=== PATIENT | female | born 1935 | race Caucasian/White ===

== ENCOUNTER → 2023-09-12 | Emergency (ER) | payer OTHER ==
[~2023-09-12] MED LIST: FENTANYL CITR 100 MCG/2 ML ONE; NA CHLORIDE 0.9% 1,000 ML ONE; NA CHLORIDE 0.9% 500 ML ONE; ONDANSETRON 4 MG/2 ML VIAL ONE
--- NOTE | 2023-09-12 09:40 | RAD REPORT ---
EXAM DESCRIPTION: CT - Head C Spine Cap Wo Con - 09/12/2023 9:27 am CLINICAL HISTORY: Trauma, head and neck injury. Chest, abdomen and pelvis pain. Pain;Trauma COMPARISON: No comparisons TECHNIQUE: CT head without contrast. CT cervical spine without contrast with coronal and sagittal reformatted images. CT chest, abdomen and pelvis with coronal and sagittal reformatted images of the spine. All CT scans are performed using dose optimization technique as appropriate and may include automated exposure control or mA/KV adjustment according to patient size. FINDINGS: CT HEAD WITHOUT CONTRAST: No intracranial hemorrhage, hydrocephalus or extra-axial fluid collection. No acute large vascular te rritory infarct. Cerebral atrophy and chronic small vessel ischemic changes. The paranasal sinuses and mastoids are clear. The calvarium is intact. CT CERVICAL SPINE WITHOUT CONTRAST: No fracture or subluxation. The prevertebral soft tissues are normal in thickness.Carotid artery calcifications. Reversal of the normal cervical lordosis likely related to underlying degenerative changes. Varying degrees of neural foraminal narrowing noted. Mild anterolisthesis of C4 on C5 also likely related to facet degenerativ e changes. CT CHEST, ABDOMEN, PELVIS: Thorax: Chest Wall: No abnormal mass Lungs: No acute abnormality. Pleura: No effusions or pneumothorax. Suyapa/Mediastinum: No lymphadenopathy. Aorta/Pulmonary Arteries: Unremarkable Heart: Normal size. Multi-vessel coronary artery disease. Abdomen/Pelvis: Liver: Benign-appearing low-density liver lesions. Biliary: No biliary ductal dilatation. Stomach: No significant focal abnormality. Duodenum: No significant focal abnormality. Pancreas: No significant abnormality. Spleen: No significant abnormality. Adrenal: No suspicious lesions. Kidney/ureter: No hydronephrosis. No renal calculi. Retroperitoneum: No retroperitoneal adenopathy. Vascular: No aneurysm. Bowel: No significant focal abnormality. Peritoneum: No ascites or free air. Bladder: Grossly unremarkable. Reproductive: No adnexal masses. Bones: Intact left hip arthroplasty. Remote left obturator ring fracture. Multilevel degenerative nevaeh nges are present in the spine. Comminuted multipart fracture involving the right proximal humerus inv olving the surgical neck and greater and lesser tuberosity. The distal fragment is displaced superior ly and medially. Other: n/a IMPRESSION: Comminuted multipart fracture involving the right proximal humerus. No dislocation. No o ther evidence of significant acute trauma.
--- NOTE | 2023-09-12 10:06 | RAD REPORT ---
EXAM DESCRIPTION: RAD - Femur Right - 09/12/2023 10:01 am CLINICAL HISTORY: PAIN COMPARISON: No comparisons FINDINGS/IMPRESSION: No acute fracture. No malalignment. Peripheral vascular calcifications. Mild de generate changes at the knee.
--- NOTE | 2023-09-12 10:07 | RAD REPORT ---
EXAM DESCRIPTION: RAD - Chest Single View - 09/12/2023 10:01 am CLINICAL HISTORY: Pain;Trauma COMPARISON: No comparisons FINDINGS: Lines: None. Lungs: No evidence of edema or pneumonia. Pleural: No significant pleural effusions or pneumothorax. Cardiac: Mild cardiomegaly. Mediastinum: Within normal limits. Bones: No acute fractures. Other: None IMPRESSION: No acute cardiopulmonary disease.
--- NOTE | 2023-09-12 10:07 | RAD REPORT ---
EXAM DESCRIPTION: RAD - Hip Right 2 View - 09/12/2023 10:01 am CLINICAL HISTORY: PAIN COMPARISON: No comparisons FINDINGS/IMPRESSION: No right hip fracture or dislocation. Mild right acetabular degenerative change s. Peripheral vascular calcifications.
--- NOTE | 2023-09-12 10:07 | RAD REPORT ---
EXAM DESCRIPTION: RAD - Pelvis - 09/12/2023 10:01 am CLINICAL HISTORY: PAIN COMPARISON: <Comparisons> FINDINGS/IMPRESSION: Intact visualized portions of the left hip arthroplasty. Remote left obturator ring fracture. No acute pelvic fracture.
--- NOTE | 2023-09-12 10:08 | RAD REPORT ---
EXAM DESCRIPTION: RAD - Humerus Right - 09/12/2023 10:01 am CLINICAL HISTORY: Pain;Swelling COMPARISON: No comparisons FINDINGS/IMPRESSION: Multipart fracture involving the right proximal humerus. The fracture is displa israel superiorly and medially at the surgical neck. Fracture extends into the greater tuberosity. No di slocation.
[2023-09-12 10:10] LABS: Absolute Eosinophils 0.1 K/uL (0-0.5); Absolute Lymphocytes (CBC) 0.4 K/uL (0.7-4.9); Absolute Monocytes 0.5 K/uL (0.1-1.3); Absolute Neutrophil 6.5 K/uL (1.8-8.0); Basophils % 0.4 % (0-1.3); Hematocrit 34.2 % (36.0-45.0); Hemoglobin 11.5 g/dL (12.0-15.0); Lymphocytes % 5.6 % (15.3-44.8); MCH 32.1 pg (27.0-35.0); MCHC 33.6 g/dL (32.0-36.0); MCV 95.5 fL (80-100); MPV 7.7 fL (7.6-11.3); Monocytes % 6.4 % (3.3-12.3); Neutrophils % 86.6 % (41.7-73.7); Nucleated Red Blood Cells % 0.1 % (0-0); Platelets 709 thou/uL (152-406); RBC Red Blood Cell Count 3.58 M/uL (3.86-4.86); Red Cell Distribution Width 17.3 % (12.1-15.2)
[2023-09-12 10:19] LABS: PT Prothrombin Time 12.9 SECONDS (9.5-12.5); Protime INR 1.18
[2023-09-12 10:30] LABS: Albumin 3.8 g/dL (3.4-5.0); Albumin/Globulin Ratio 1.2 (1.1-1.8); Anion Gap 9.3 mEq/L (5.0-15.0); Bilirubin Direct 0.2 mg/dL (0-0.2); Bilirubin Indirect, Calculated 0.5 mg/dL (0.2-0.8); Bilirubin Total 0.7 mg/dL (0.2-1.0); Globulin 3.2 g/dL (2.3-3.5); Magnesium 2.2 mg/dL (1.6-2.4); Potassium 4.3 mEq/L (3.5-5.1); Troponin High Sensitivity 13.9 pg/mL (<58.9)
--- NOTE | 2023-09-12 11:08 | ER ---
Nurse's Notes [facility] Name: Concha Benjamin Age: 88 yrs Sex: Female : 1935 Arrival Date: 09/12/2023 Time: 09:12 Bed 7 Private MD: Diagnosis: Fall on same level, unspecified;4-part fracture of surgical neck of left humerus, initial encounter for closed fracture;Contusion of right hip Presentation: 09/11 09:19 Chief complaint: EMS states: "Slipped in the shower and landed on her right hip, no rs5 LOC". Coronavirus screen: At this time, the client does not indicate any symptoms associated with coronavirus-19. Ebola Screen: No symptoms or risks identified at this time. Initial Sepsis Screen: Does the patient meet any 2 criteria? No. Patient's initial sepsis screen is negative. Does the patient have a suspected source of infection? No. Patient's initial sepsis screen is negative. Risk Assessment: Do you want to hurt yourself or someone else? Patient reports no desire to harm self or others. Onset of symptoms was September 12, 2023. Care prior to arrival: Medication(s) given: 30 mg Toradol IV IV initiated. 20 GA, in the left forearm. 09:19 Method Of Arrival: EMS: [facility] rs5 09:19 Acuity: ANNALISE 3 rs5 Triage Assessment: 09:21 General: Appears uncomfortable, Behavior is cooperative. Pain: Complains of pain in rs5 right hip Pain currently is 7 out of 10 on a pain scale. Quality of pain is described as aching, Is continuous. Historical: - Allergies: :21 No Known Allergies; rs5 - PMHx: :21 Hypercholesterolemia; Hypertensive disorder; Hypothyroidism; Diabetes mellitus; rs5 09:21 Anxiety; rs5 - Immunization history:: Adult Immunizations unknown. - Social history:: Smoking status: Patient denies any tobacco usage or history of. - Family history:: not pertinent. Screenin:15 [facility] ED Fall Risk Assessment (Adult) History of falling in the last 3 months, rs5 including since admission Yes- single mechanical fall (1 pt) Confusion or Disorientation No (0 pts) Intoxicated or Sedated No (0 pts) Impaired Gait Yes (1 pt) Mobility Assist Device Used Yes (1 pt) Altered Elimination No (0 pt) Score/Fall Risk Level 0 - 2 = Low Risk Oriented to surroundings, Maintained a safe environment. Abuse screen: Denies threats or abuse. Nutritional screening: No deficits noted. Tuberculosis screening: No symptoms or risk factors identified. Assessment: 09:15 General: Appears in no apparent distress. uncomfortable, Behavior is cooperative. Pain: rs5 Complains of pain in right hip Pain currently is 7 out of 10 on a pain scale. Quality of pain is described as aching, Is continuous. 09:15 Neuro: Level of Consciousness is awake, alert, obeys commands, Oriented to person, rs5 place, time, situation. Cardiovascular: Patient's skin is warm and dry. Rhythm is regular. Respiratory: Airway is patent Respiratory effort is even, unlabored, Respiratory pattern is regular, symmetrical. GI: Abdomen is round non-distended, Abd is soft and non tender X 4 quads. : No signs and/or symptoms were reported regarding the genitourinary system. EENT: No signs and/or symptoms were reported regarding the EENT system. Derm: Skin is intact, Skin is pink, warm \\T\\ dry. Musculoskeletal: Range of motion: limited in right leg. 11:04 Reassessment: Pt had bowel movement in bedpan. Cleaned patient up and placed on ld1 purewick. Clean linens provided. 11:15 Reassessment: pt up for discharge, carriage in contacted to arrange for transportation. rs5 11:53 Reassessment: Patient and/or family updated on plan of care and expected duration. Pain rs5 level reassessed. Patient is alert, oriented x 3, equal unlabored respirations, skin warm/dry/pink. Vital Signs: 09:19 BP 177 / 65; Pulse 77; Resp 18; Pulse Ox 99% on R/A; rs5 10:43 BP 181 / 68; Pulse 75; Resp 18; Pulse Ox 95% on R/A; ld1 ED Course: 09:12 Patient arrived in ED. nevaeh 09:12 Ronny Dixon MD is Attending Physician. neaveh 09:15 Patient has correct armband on for positive identification. Placed in gown. Bed in low rs5 position. Call light in reach. Side rails up X2. 09:19 Carlos Najera RN is Primary Nurse. rs5 09:21 Triage completed. rs5 09:29 CT Traumagram (Head C Spine CAP wo con) In Process Unspecified. EDMS 10:02 XRAY Chest (1 view) In Process Unspecified. EDMS 10:02 Pelvis XRAY In Process Unspecified. EDMS 10:03 Hip Right 2 View XRAY In Process Unspecified. EDMS 10:03 Femur Right XRAY In Process Unspecified. EDMS 10:03 Humerus Right XRAY In Process Unspecified. EDMS 11:08 Ray Tam MD is Referral Physician. [facility] 12:28 No provider procedures requiring assistance completed. IV discontinued, intact, ld1 bleeding controlled, No redness/swelling at site. 12:29 Arm band placed on right wrist. ld1 Administered Medications: 09:40 Drug: fentaNYL (PF) IVP 25 mcg IVP once Route: IVP; Site: left forearm; rs5 10:43 Drug: NS 0.9% IV 500 ml IV at bolus once Route: IV; Rate: bolus; Site: left forearm; ld1 10:43 Drug: NS 0.9% IV 1000 ml IV at 125 ml/hr continuous Route: IV; Rate: 125 ml/hr; Site: ld1 left forearm; 11:04 Drug: fentaNYL (PF) IVP 25 mcg IVP once Route: IVP; Site: left forearm; ld1 11:04 Drug: Ondansetron IVP 4 mg IVP once; over 2 minutes Route: IVP; Site: left forearm; ld1 Medication: 09:23 VIS not applicable for this client. rs5 Outcome: 11:08 Discharge ordered by . [facility] 12:29 Discharged to home via wheelchair, ld1 12:29 Condition: unchanged 12:29 Discharge instructions given to patient, long-term, Instructed on discharge instructions, follow up and referral plans. medication usage, Demonstrated understanding of instructions, follow-up care, medications, 12:30 Patient left the ED. ld1 Signatures: Dispatcher [employer] Ronny Peterson MD MD cha Sims, Lauren, DEVIN RN ld1 Carlos Najera, DEVIN RN rs5 Corrections: (The following items were deleted from the chart) 11:53 11:53 Reassessment: pt up for discharge, carriage in contacted to arrange for rs5 transportation. rs5
--- NOTE | 2023-09-12 11:08 | EDPHYS ---
Physician Documentation [facility] Name: Concha Benjamin Age: 88 yrs Sex: Female : 1935 Arrival Date: 09/12/2023 Time: 09:12 Bed 7 Private MD: ED Physician Ronny Dixon HPI: 09/11 09:46 This 88 yrs old Female presents to ER via EMS with complaints of fall getting nevaeh out of the shower. 09:46 Trauma demographics: County: The injury occurred in [place]. Mechanism of injury: nevaeh Fall: the patient fell from a standing position. Associated injuries: The patient sustained right arm and right leg. Onset: The symptoms/episode began/occurred just prior to arrival, this morning. The patient or guardian complains of decreased range of motion, an injury, pain. right shoulder. Context: resulted from a fall, The patient experiences decreased range of motion. Modifying factors: the symptoms are alleviated by remaining still, The symptoms are aggravated by movement. The patient presents with decreased range of motion, pain. Associated signs and symptoms: The patient has no apparent associated signs or symptoms. Severity of symptoms: At their worst the symptoms were moderate, in the emergency department the symptoms are unchanged. Historical: - Allergies: 09:21 No Known Allergies; rs5 - PMHx: 09:21 Hypercholesterolemia; Hypertensive disorder; Hypothyroidism; Diabetes mellitus; rs5 09:21 Anxiety; rs5 - Immunization history:: Adult Immunizations unknown. - Social history:: Smoking status: Patient denies any tobacco usage or history of. - Family history:: not pertinent. ROS: 09:46 Constitutional: Negative for fever, chills, and weight loss, Eyes: Negative for injury, nevaeh pain, redness, and discharge, ENT: Negative for injury, pain, and discharge, Neck: Negative for injury, pain, and swelling, Cardiovascular: Negative for chest pain, palpitations, and edema, Respiratory: Negative for shortness of breath, cough, wheezing, and pleuritic chest pain, Abdomen/GI: Negative for abdominal pain, nausea, vomiting, diarrhea, and constipation, Back: Negative for injury and pain, : Negative for injury, bleeding, discharge, and swelling, Skin: Negative for injury, rash, and discoloration, Neuro: Negative for headache, weakness, numbness, tingling, and seizure, Psych: Negative for depression, anxiety, suicide ideation, homicidal ideation, and hallucinations, Allergy/Immunology: Negative for hives, rash, and allergies, Endocrine: Negative for neck swelling, polydipsia, polyuria, polyphagia, and marked weight changes, Hematologic/Lymphatic: Negative for swollen nodes, abnormal bleeding, and unusual bruising, 09:46 MS/extremity: Positive for decreased range of motion, pain, tenderness, of the pelvis, right arm and right leg, Exam: 09:46 Constitutional: This is a well developed, well nourished patient who is awake, alert, nevaeh and in no acute distress. Head/Face: Normocephalic, atraumatic. Eyes: Pupils equal round and reactive to light, extra-ocular motions intact. Lids and lashes normal. Conjunctiva and sclera are non-icteric and not injected. Cornea within normal limits. Periorbital areas with no swelling, redness, or edema. ENT: Nares patent. No nasal discharge, no septal abnormalities noted. Tympanic membranes are normal and external auditory canals are clear. Oropharynx with no redness, swelling, or masses, exudates, or evidence of obstruction, uvula midline. Mucous membranes moist. Neck: Trachea midline, no thyromegaly or masses palpated, and no cervical lymphadenopathy. Supple, full range of motion without nuchal rigidity, or vertebral point tenderness. No Meningismus. Chest/axilla: Normal chest wall appearance and motion. Nontender with no deformity. No lesions are appreciated. Cardiovascular: Regular rate and rhythm with a normal S1 and S2. No gallops, murmurs, or rubs. Normal PMI, no JVD. No pulse deficits. Respiratory: Lungs have equal breath sounds bilaterally, clear to auscultation and percussion. No rales, rhonchi or wheezes noted. No increased work of breathing, no retractions or nasal flaring. Abdomen/GI: Soft, non-tender, with normal bowel sounds. No distension or tympany. No guarding or rebound. No evidence of tenderness throughout. Back: No spinal tenderness. No costovertebral tenderness. Full range of motion. Skin: Warm, dry with normal turgor. Normal color with no rashes, no lesions, and no evidence of cellulitis. Neuro: Awake and alert, GCS 15, oriented to person, place, time, and situation. Cranial nerves II-XII grossly intact. Motor strength 5/5 in all extremities. Sensory grossly intact. Cerebellar exam normal. Normal gait. Psych: Awake, alert, with orientation to person, place and time. Behavior, mood, and affect are within normal limits. 09:46 Musculoskeletal/extremity: Extremities: grossly normal except: noted in the right arm: decreased ROM, pain, noted in the right leg: decreased ROM, pain, 11:11 ECG was reviewed by the Attending Physician. [facility] Vital Signs: 09:19 BP 177 / 65; Pulse 77; Resp 18; Pulse Ox 99% on R/A; rs5 10:43 BP 181 / 68; Pulse 75; Resp 18; Pulse Ox 95% on R/A; ld1 MDM: 09:13 Patient medically screened. [facility] 09:54 Differential diagnosis: closed head injury, DJD, tendonitis, dislocation, closed nevaeh fracture. Data reviewed: vital signs, nurses notes, lab test result(s), EKG, radiologic studies, CT scan, plain films. Consideration of Admission/Observation Escalation of care including admission/observation considered. I considered the following discharge prescriptions or medication management in the emergency department Medications were administered in the Emergency Department. See MAR. Independent interpretation of the following test(s) in the Emergency Department EKG: See my EKG interpretation above. Test considered but Not performed: Ultrasound no fast. 09/11 09:17 Order name: Basic Metabolic Panel; Complete Time: 10:59 [facility] 09/11 09:17 Order name: CBC with Diff [facility] 09/11 09:17 Order name: LFT's; Complete Time: 10:59 [facility] 09/11 09:17 Order name: Magnesium; Complete Time: 10:59 [facility] 09/11 09:17 Order name: NT PRO-BNP; Complete Time: 10:59 [facility] 09/11 09:17 Order name: PT-INR; Complete Time: 10:59 [facility] 09/11 09:17 Order name: Troponin HS; Complete Time: 10:59 [facility] 09/11 10:21 Order name: CBC Smear Scan EDMS 09/11 09:17 Order name: XRAY Chest (1 view); Complete Time: 10:17 [facility] 09/11 09:17 Order name: Pelvis XRAY; Complete Time: 10:17 [facility] 09/11 09:17 Order name: Hip Right 2 View XRAY; Complete Time: 10:17 [facility] 09/11 09:17 Order name: Femur Right XRAY; Complete Time: 10: [facility] 09/11 09:17 Order name: Humerus Right XRAY; Complete Time: : [facility] 09/11 09:17 Order name: CT Traumagram (Head C Spine CAP wo con); Complete Time: 10:17 [facility] 09/11 09:17 Order name: EKG; Complete Time: 09:18 [facility] 09/11 09:17 Order name: Cardiac monitoring; Complete Time: 10: [facility] 09/11 09:17 Order name: EKG - Nurse/Tech; Complete Time: : [facility] 09/11 09:17 Order name: IV Saline Lock; Complete Time: : [facility] 09/11 09:17 Order name: Labs collected and sent; Complete Time: : [facility] 09/11 09:17 Order name: O2 Per Protocol; Complete Time: :18 [facility] 09/11 09:17 Order name: O2 Sat Monitoring; Complete Time: :18 [facility] 09/11 11:00 Order name: Shoulder Immobilizer; Complete Time: 11:04 [facility] 09/11 11:00 Order name: Ice pack; Complete Time: 11:04 [facility] EC:11 Rate is 63 beats/min. Rhythm is regular. QRS [place] is Normal. [place] interval is normal. QRS nevaeh interval is normal. QT interval is normal. No Q waves. T waves are Normal. No ST changes noted. Clinical impression: NSR w/ Non-specific ST/T Changes and No evidence of ischemia. Interpreted by me. Reviewed by me. Administered Medications: 09:40 Drug: fentaNYL (PF) IVP 25 mcg IVP once Route: IVP; Site: left forearm; rs5 10:43 Drug: NS 0.9% IV 500 ml IV at bolus once Route: IV; Rate: bolus; Site: left forearm; ld1 10:43 Drug: NS 0.9% IV 1000 ml IV at 125 ml/hr continuous Route: IV; Rate: 125 ml/hr; Site: ld1 left forearm; 11:04 Drug: fentaNYL (PF) IVP 25 mcg IVP once Route: IVP; Site: left forearm; ld1 11:04 Drug: Ondansetron IVP 4 mg IVP once; over 2 minutes Route: IVP; Site: left forearm; ld1 Disposition Summary: 09/12/23 11:08 Discharge Ordered Notes: Location: Home [facility] Problem: new nevaeh Symptoms: have improved nevaeh Condition: Stable nevaeh Diagnosis - Fall on same level, unspecified nevaeh - 4-part fracture of surgical neck of left humerus, initial encounter for closed [facility] fracture - Contusion of right hip nevaeh Followup: nevaeh - With: Private Physician - When: 2 - 3 days - Reason: Recheck today's complaints, Continuance of care, Re-evaluation by your physician Followup: nevaeh - With: Ray Tam MD - When: 2 - 3 days - Reason: Recheck today's complaints, Re-evaluation by your physician Discharge Instructions: - Discharge Summary Sheet nevaeh - Fall Prevention in the Home, Adult nevaeh - Humerus Fracture Treated With Immobilization nevaeh - Fall Prevention in the Home, Adult, [id number] nevaeh - Humerus Fracture Rehab [facility] Forms: - Medication Reconciliation Form [facility] - Thank You Letter [facility] - Antibiotic Education nevaeh - Prescription Opioid Use nevaeh - Patient Portal Instructions [facility] - Leadership Thank You Letter [facility] Prescriptions: - acetaminophen-codeine 300-30 mg Oral tablet - take 1 tablet ORAL route every 4-6 hours as needed for pain; 20 tablet; nevaeh Refills: 0, Product Selection Permitted - Motrin IB 200 mg Oral tablet - take 1 tablet ORAL route every 6 hours As needed as needed with food; 30 nevaeh tablet; Refills: 0, Product Selection Permitted Signatures: Dispatcher [employer] Ronny Peterson MD MD cha Sims, Lauren, RN RN ld1 Carlos Najera RN RN rs5
[2023-09-12 12:51] LABS: Platelet Estimate INCR; White Blood Cell Scan OK (OK)
[2023-09-12 12:52] LABS: Blood Morphology Comment NOT SEEN (NOT SEEN)
[2023-09-12 12:53] VITALS: BP 181/68; O2SAT 95
--- NOTE | 2023-09-16 14:33 | EKG ---
Test Date: 2023-09-12 Test Time: 09:35:46 Tag Maker: JOSEFA MEASUREMENT RESULTS: Intervals: Rate: 63 VT: 192 QRSD: 94 QT: 460 QTc: 470 [place]: P: 91 VT: 192 QRS: 84 T: 73 INTERPRETIVE STATEMENTS: Normal sinus rhythm Normal ECG No previous ECG available for comparison Electronically Signed On 09-16-23 14:18:22 CDT by Abdiaziz Roberts
== END ==
LOC: ER 09:12
DX: S42.241A 4-part fracture of surgical neck of right humerus, initial encounter for closed fracture (principal); S70.01XA Contusion of right hip, initial encounter; W18.30XA Fall on same level, unspecified, initial encounter
CPT/HCPCS: 93005; 85025; 80048; 36415; 83735; 85610; 80076; 84484; 83880; 70450; 71250; 72125; 71045; 72170; 73502; 73060; 73552; 96375; 96374; 99284; J3010; J2405; J7040; J7030

== ENCOUNTER 2023-09-15 10:57 | Inpatient (IN) | payer OTHER ==
[2023-09-15] MEDS ORDERED: KETOROLAC 30 MG/ML INJ ONE (11:26)
[2023-09-15] MEDS ORDERED: ONDANSETRON 4 MG/2 ML VIAL ONE (11:26)
[2023-09-15] MEDS ORDERED: FENTANYL CITR 100 MCG/2 ML ONE (11:26)
[2023-09-15] MEDS ORDERED: DIAZEPAM 5 MG TABLET ONE (11:27)
[2023-09-15] MEDS ORDERED: NA CHLORIDE 0.9% 1,000 ML ONE (11:27)
[2023-09-15] MEDS ORDERED: FAMOTIDINE 20 MG/2 ML VIAL IV ONE (11:27)
[2023-09-15 11:38] LABS: Absolute Lymphocytes (CBC) 0.2 K/uL (0.7-4.9); Absolute Monocytes 0.7 K/uL (0.1-1.3); Absolute Neutrophil 9.8 K/uL (1.8-8.0); Basophils % 0.4 % (0-1.3); Eosinophils % 0.3 % (0-4.4); Hematocrit 33.2 % (36.0-45.0); Hemoglobin 11.1 g/dL (12.0-15.0); Lymphocytes % 1.7 % (15.3-44.8); MCH 31.7 pg (27.0-35.0); MCHC 33.4 g/dL (32.0-36.0); MCV 94.9 fL (80-100); MPV 7.8 fL (7.6-11.3); Monocytes % 6.5 % (3.3-12.3); Neutrophils % 91.1 % (41.7-73.7); Platelets 705 thou/uL (152-406); Red Cell Distribution Width 17.3 % (12.1-15.2)
[2023-09-15 11:49] LABS: PT Prothrombin Time 13.3 SECONDS (9.5-12.5); Protime INR 1.22
[2023-09-15 12:03] LABS: Albumin 3.3 g/dL (3.4-5.0); Albumin/Globulin Ratio 0.9 (1.1-1.8); Anion Gap 11.4 mEq/L (5.0-15.0); Bilirubin Direct 0.3 mg/dL (0-0.2); Bilirubin Indirect, Calculated 0.6 mg/dL (0.2-0.8); Bilirubin Total 0.9 mg/dL (0.2-1.0); Globulin 3.5 g/dL (2.3-3.5); Magnesium 1.9 mg/dL (1.6-2.4); Potassium 4.4 mEq/L (3.5-5.1); Protein, Total 6.8 g/dL (6.4-8.2)
[2023-09-15 12:24] LABS: Specific Gravity 1.011 (1.005-1.030); Sqamous Epithelial <5 /HPF (None Seen); Urine Bacteria <20 /HPF (<20); Urine Bilirubin NEGATIVE (Negative); Urine Blood Negative (Negative); Urine Clarity Turbid (Clear); Urine Color Colorless (Yellow); Urine Culture Reflex Order NOT NEEDED; Urine Glucose 4+ (Over) (Negative); Urine Ketones 1+ (Negative); Urine Microscopic Reflex YN ORDER UMIC; Urine Nitrite NEGATIVE (Negative); Urine Protein NEGATIVE (Negative); Urine RBC <5 /HPF (None Seen); Urine Urobilinogen Normal (Normal); Urine WBC <5 /HPF (<5); Urine pH 6.5 (5.0-7.0)
--- NOTE | 2023-09-15 12:44 | RAD REPORT ---
EXAM DESCRIPTION: RAD - Pelvis - 09/15/2023 12:34 pm CLINICAL HISTORY: PAIN COMPARISON: Pelvis dated 09/12/2023 FINDINGS: Left total hip arthroplasty seen. Diffuse osteopenia. No acute fracture or dislocation see n. Lumbar degenerative changes. Mild atherosclerosis.
--- NOTE | 2023-09-15 12:45 | RAD REPORT ---
EXAM DESCRIPTION: RAD - Femur Right - 09/15/2023 12:34 pm CLINICAL HISTORY: PAIN COMPARISON: Femur Right dated 09/12/2023 FINDINGS: Diffuse osteopenia is seen. Moderate vascular atherosclerosis. No acute fracture or disloc ation.
--- NOTE | 2023-09-15 12:45 | RAD REPORT ---
EXAM DESCRIPTION: RAD - Tib Fib Right - 09/15/2023 12:34 pm CLINICAL HISTORY: PAIN COMPARISON: No comparisons FINDINGS: Prominent diffuse osteopenia. Moderate vascular calcification. No acute fracture or disloc ation.
--- NOTE | 2023-09-15 12:46 | RAD REPORT ---
EXAM DESCRIPTION: RAD - Chest Single View - 09/15/2023 12:34 pm CLINICAL HISTORY: COUGH Chest pain. COMPARISON: Chest Single View dated 09/12/2023; Humerus Right dated 09/12/2023 FINDINGS: Portable technique limits examination quality. [id number] pulmonary edema pattern is seen. The heart is moderately enlarged. Proximal right hu merus fracture seen. IMPRESSION: Moderate CHF pattern.
[2023-09-15 12:52] LABS: Blood Morphology Comment NOT SEEN (NOT SEEN); Dohle Bodies PRESENT; Platelet Estimate INCR; White Blood Cell Scan OK (OK)
--- NOTE | 2023-09-15 12:56 | RAD REPORT ---
EXAM DESCRIPTION: CT - Chest For Pe Angio - 09/15/2023 12:45 pm CLINICAL HISTORY: Chest pain. CHEST PAIN COMPARISON: No comparisons TECHNIQUE: CT angiogram of the pulmonary arteries was performed with MIP. All CT scans are performed using dose optimization technique as appropriate and may include automated exposure control or mA/KV adjustment according to patient size. FINDINGS: No evidence of pulmonary thromboembolism. No acute aortic finding demonstrated. Mild interstitial pulmonary edema. Cardiac size is mildly enlarged. No significant pericardial or pleural fluid. Proximal right humerus fracture, mildly comminuted. IMPRESSION: No evidence of pulmonary thromboembolism. Mild CHF pattern. Proximal right humeral fracture.
--- NOTE | 2023-09-15 12:58 | RAD REPORT ---
EXAM DESCRIPTION: CTAbdomen Pelvis W Contrast - 09/15/2023 12:45 pm CLINICAL HISTORY: Abdominal pain. ABD PAIN COMPARISON: No comparisons TECHNIQUE: Biphasic CT imaging of the abdomen and pelvis was performed with 100 ml non-ionic IV cont rast. All CT scans are performed using dose optimization technique as appropriate and may include automated exposure control or mA/KV adjustment according to patient size. FINDINGS: The lung bases are clear. The liver demonstrates numerous small low-density lesions likely small benign cysts. Spleen, pancreas , adrenal glands and kidneys are within normal limits. No bowel obstruction, free air, free fluid or abscess. There is a large amount of stool within the co tino. The appendix is normal. No evidence of significant lymphadenopathy. Moderate lumbar degenerative changes. IMPRESSION: No acute intra-abdominal or pelvic finding. Large amount of stool retained in the colon.
[2023-09-15] MEDS ORDERED: INSULIN GLARGINE 100 UNIT/ML SQ ONE (13:01)
[2023-09-15] MEDS ORDERED: INSULIN REGULAR (HUMAN) 100 UNIT/ML ONE (13:03)
[2023-09-15] MEDS ORDERED: ENOXAPARIN 60 MG/0.6 ML SQ ONE (13:04)
[2023-09-15] MEDS ORDERED: FUROSEMIDE 20 MG/ 2ML VIAL ONE (13:14)
--- NOTE | 2023-09-15 13:19 | ER ---
Nurse's Notes [facility] Name: Concha Benjamin Age: 88 yrs Sex: Female : 1935 Arrival Date: 09/15/2023 Time: 10:57 Bed 15 Private MD: Diagnosis: Fall on same level, unspecified;Pain in right lower leg;Type 2 diabetes mellitus with hyperglycemia;Essential (primary) hypertension;Combined systolic (congestive) and diastolic (congestive) heart failure;4-part fracture of surgical neck of right humerus, sequela Presentation: 09/14 11:04 Chief complaint: EMS states: RIGHT LEG AND SIDE PAIN. FALL SATURDAY SEEN AND GIVEN PAIN db MEDICATION. STATES PAIN MEDICATION IS CAUSING CONSTIPATION STOPPED MEDICATION. DIAGNOSED WITH HUMERAL FRACTURE. FROM [facility] [place]. LAST TOOK PAIN MEDICATION TYLENOL #3 AT 0300 TODAY. Coronavirus screen: Vaccine status: Patient reports receiving the 2nd dose of the covid vaccine. Client denies travel out of the [place] in the last 14 days. At this time, the client does not indicate any symptoms associated with coronavirus-19. Ebola Screen: Patient negative for fever greater than or equal to 101.5 degrees Fahrenheit, and additional compatible Ebola Virus Disease symptoms Patient denies exposure to infectious person. Patient denies travel to an Ebola-affected area in the 21 days before illness onset. No symptoms or risks identified at this time. Initial Sepsis Screen: Does the patient meet any 2 criteria? No. Patient's initial sepsis screen is negative. Does the patient have a suspected source of infection? No. Patient's initial sepsis screen is negative. Risk Assessment: Do you want to hurt yourself or someone else? Patient reports no desire to harm self or others. Onset of symptoms was September 15, 2023. 11:04 Method Of Arrival: EMS: [facility] db 11:04 Acuity: ANNALISE 3 db Triage Assessment: 11:04 General: Appears in no apparent distress. comfortable, Behavior is calm, cooperative. db Pain: Complains of pain in right arm and right leg. Neuro: Level of Consciousness is awake, alert, obeys commands, Oriented to person, place, time, situation, Moves all extremities. Speech is normal. Musculoskeletal: Circulation, motion, and sensation intact. Capillary refill < 3 seconds, Range of motion: limited in right hip. Historical: - Allergies: 11:12 Tape; db - PMHx: 11:12 Anxiety; diabetes mellitus; Hypercholesterolemia; Hypertensive disorder; Hypothyroidism;db - Immunization history:: Adult Immunizations unknown. - Social history:: Smoking status: Patient denies any tobacco usage or history of. - Family history:: not pertinent. Screenin:55 [facility] ED Fall Risk Assessment (Adult) History of falling in the last 3 months, db including since admission Yes- single mechanical fall (1 pt) Confusion or Disorientation No (0 pts) Intoxicated or Sedated No (0 pts) Impaired Gait Yes (1 pt) Mobility Assist Device Used Yes (1 pt) Altered Elimination No (0 pt) Score/Fall Risk Level 3 or more points = High Risk Oriented to surroundings, Maintained a safe environment. Abuse screen: Denies threats or abuse. Denies injuries from another. Nutritional screening: No deficits noted. Tuberculosis screening: No symptoms or risk factors identified. Assessment: 11:35 Reassessment: Patient appears in no apparent distress at this time. Patient and/or db family updated on plan of care and expected duration. Pain level reassessed. Patient is alert, oriented x 3, equal unlabored respirations, skin warm/dry/pink. PT ASSISTED ON BEDSIDE COMMODE. General: Appears in no apparent distress. comfortable, Behavior is calm, cooperative. Pain: Complains of pain in right leg. 12:30 Reassessment: Patient appears in no apparent distress at this time. Patient and/or db family updated on plan of care and expected duration. Pain level reassessed. Patient is alert, oriented x 3, equal unlabored respirations, skin warm/dry/pink. Neuro: No deficits noted. Level of Consciousness is awake, alert, obeys commands, Oriented to person, place, time, situation. Respiratory: Airway is patent Respiratory effort is even, unlabored, Respiratory pattern is regular, symmetrical. Musculoskeletal: Circulation, motion, and sensation intact. Capillary refill < 3 seconds, Range of motion: limited in right hip Reports pain in right leg. 13:30 Reassessment: Patient appears in no apparent distress at this time. Patient and/or db family updated on plan of care and expected duration. Pain level reassessed. Patient is alert, oriented x 3, equal unlabored respirations, skin warm/dry/pink. PATIENT CHANGED. NEW BRIEF PLACED. PATIENT PLACED ON PURWICK. 13:35 Reassessment: NOTIFIED DR. VANEGAS PATIENT REPORTS TAKING HOME AM MEDICATIONS db METOPROLOL AND ASPIRIN. 14:02 Reassessment: FAXED REPORT TO 2ND FLOOR. NOTIFIED BARB. db 14:02 Reassessment: FLOOR CALLED AND REQUESTED REPORT FAXED TO 4TH FLOOR DUE TO OUT OF TONER. db ONLY ABLE TO SEE TOP PAGE. 14:14 Reassessment: REPORT FAXED TO 4TH FLOOR PER NURSE REQUEST. db 14:19 Reassessment: Patient appears in no apparent distress at this time. Patient and/or db family updated on plan of care and expected duration. Pain level reassessed. Patient is alert, oriented x 3, equal unlabored respirations, skin warm/dry/pink. 14:58 Reassessment: NOTIFIED LYDIA CHRIS, ATTEMPTED TO CALL UNIT TO LET THEM KNOW PATIENT db IS ON THE WAY UNABLE TO GET A HOLD OF STAFF. NOTIFIED ALSO SENT PAPERWORK BY [facility] BECAUSE UNIT STATES PRINTER IS OUT OF TONER. 14:59 Reassessment: PATIENT TRANSPORTED UPSTAIRS VIA BED WITH TECH AND FAMILY. db Vital Signs: 11:04 BP 187 / 77; Pulse 70; Resp 18; Temp 98.7(O); Pulse Ox 100% on R/A; Weight 54.43 kg; db Height 5 ft. 6 in. ; Pain 9/10; 12:00 BP 166 / 86; Pulse 70; Resp 20; Pulse Ox 100% on R/A; db 12:49 BP 172 / 60; Pulse 68; Resp 18; Pulse Ox 100% on R/A; db 13:30 BP 178 / 62; Pulse 64; Resp 18; Pulse Ox 100% on R/A; db 14:00 BP 181 / 67; Pulse 70; Resp 18; Pulse Ox 100% on R/A; db 11:04 Body Mass Index 19.37 (54.43 kg, 167.64 cm) db 11:04 Pain Scale: Adult db Thais Coma Score: 11:16 Eye Response: spontaneous(4). Motor Response: obeys commands(6). Verbal Response: nevaeh oriented(5). Total: 15. ED Course: 11:04 Arm band placed on Patient placed in an exam room. db 11:10 Patient arrived in ED. db 11:12 Triage completed. db 11:13 Ronny Vanegas MD is Attending Physician. nevaeh 11:19 Samantha Loera, RN is Primary Nurse. db 11:36 Lipase Sent. bc6 11:37 Basic Metabolic Panel Sent. bc6 11:37 CBC with Diff Sent. bc6 11:37 LFT's Sent. bc6 11:37 Magnesium Sent. bc6 11:37 NT PRO-BNP Sent. bc6 11:37 PT-INR Sent. bc6 11:37 Troponin HS Sent. bc6 11:37 Initial lab(s) drawn, by me, sent to lab. Inserted saline lock: 22 gauge in left bc6 antecubital area, using aseptic technique. Blood collected. 12:35 XRAY Chest (1 view) In Process Unspecified. EDMS 12:35 Pelvis XRAY In Process Unspecified. EDMS 12:35 Femur Right XRAY In Process Unspecified. EDMS 12:35 Tib Fib Right XRAY In Process Unspecified. EDMS 12:[address] via stretcher. hb 12:47 CT Chest For PE Angio In Process Unspecified. EDMS 12:47 CT Abd/Pelvis - IV Contrast Only In Process Unspecified. EDMS 13:16 Brit Mai MD is Hospitalizing Provider. nevaeh 13:28 US Extremity Venous W Compression Nathaniel In Process Unspecified. EDMS 13:55 Patient has correct armband on for positive identification. Bed in low position. Call db light in reach. Side rails up X 1. Provided Education on: LABS, ADMISSION, RADIOLOGY, PAIN CONTROL. Client placed on continuous cardiac and pulse oximetry monitoring. NIBP monitoring applied. clinical research monitor on. Pulse ox on. NIBP on. Warm blanket given. 13:55 No provider procedures requiring assistance completed. Patient admitted, IV remains in db place. Administered Medications: 13:06 Discontinued: ns 0.9% 1000 ml IV at 125 ml/hr continuous nevaeh 11:35 Drug: Diazepam PO 5 mg PO once Route: PO; db 15:02 Follow up: Response: No adverse reaction db 11:45 Drug: NS 0.9% IV 250 ml IV at bolus once Route: IV; Rate: bolus; Site: left antecubital;db 12:14 Follow up: Response: No adverse reaction; IV Status: Completed infusion; IV Intake: tl4 250ml 11:53 Drug: Ketorolac IVP 15 mg IVP once Route: IVP; Site: left antecubital; db 15:02 Follow up: Response: No adverse reaction db 11:53 Drug: fentaNYL (PF) IVP 25 mcg IVP once Route: IVP; Site: left antecubital; db 15:03 Follow up: Response: No adverse reaction db 11:54 Drug: Ondansetron IVP 4 mg IVP once; over 2 minutes Route: IVP; Site: left antecubital; db 15:03 Follow up: Response: No adverse reaction db 11:58 Drug: Famotidine IVP 20 mg IVP once; dilute with 10 mL 0.9% NaCl; give over 2 minutes db Route: IVP; Site: left antecubital; 15:02 Follow up: Response: No adverse reaction db 12:14 Drug: NS 0.9% IV 1000 ml IV at 125 ml/hr continuous Route: IV; Rate: 125 ml/hr; Site: tl4 left antecubital; Delivery: Primary tubing; 13:08 Drug: Insulin Regular Human IVP 8 units IVP once {Co-Signature: tl4 (Imtiaz Casanova RN).} Route: IVP; Site: left antecubital; 15:02 Follow up: Response: No adverse reaction db 13:14 Drug: Insulin Glargine Sub-Q 25 units Sub-Q once {Co-Signature: tl4 (Imtiaz Casanova RN).} Route: Sub-Q; Site: left upper arm; 15:02 Follow up: Response: No adverse reaction db 13:14 Drug: Enoxaparin Sub-Q 1 mg/kg Sub-Q once Route: Sub-Q; Site: left lower abdomen; db 15:02 Follow up: Response: No adverse reaction db 13:22 Drug: Furosemide IVP 20 mg IVP once; give over 2 minutes Route: IVP; Site: left db antecubital; 15:02 Follow up: Response: No adverse reaction db 13:35 Not Given (Patient Refused; took this amm): aspirinchewable tablet 81 mg PO once db 13:36 Not Given (Patient Refused; took medication this AM): toprol xl25 mg PO once db Medication: 14:19 VIS not applicable for this client. db Point of Care Testing: Blood Glucose: 13:00 Blood Glucose: 348 mg/dL; tl4 14:00 Blood Glucose: 341 mg/dL; db Ranges: Intake: 12:14 IV: 250ml; Total: 250ml. tl4 Outcome: 13:18 Decision to Hospitalize by Provider. nevaeh 14:19 Admitted to ER Hold. Please see [facility] for further documentation. db 14:19 Condition: stable 14:19 Instructed on the need for admit, 15:03 Admitted to Med/surg accompanied by tech, via stretcher, room 202, db 15:03 Patient left the ED. db Signatures: Dispatcher [employer] EDRonny Patricia MD MD cha Baxter, Heather, RN RN Samantha Loera RN RN db Meena Gregory 6 LogdaImtiaz ngo RN RN tl4 LogdaImtiaz ngo RN tl4 Corrections: (The following items were deleted from the chart) 11:14 11:12 Arm band placed on Patient placed in an exam room, db db 11:15 11:12 General: Appears in no apparent distress. comfortable, Behavior is calm, db cooperative, db 11:15 11:12 Pain: Complains of pain in right arm and right leg db db 11:15 11:12 Neuro: Level of Consciousness is awake, alert, obeys commands, Oriented to db person, place, time, situation, Moves all extremities. Speech is normal, db 11:15 11:12 Musculoskeletal: Circulation, motion, and sensation intact. Capillary refill < 3 db seconds, Range of motion: limited in right hip db 11:39 11:38 Urine collected: [place] [id number] 11:40 11:39 Safety checks: Door open/sign placed on door: [place] [id number]
--- NOTE | 2023-09-15 13:19 | EDPHYS ---
Physician Documentation [facility] Name: Concha Benjamin Age: 88 yrs Sex: Female : 1935 Arrival Date: 09/15/2023 Time: 10:57 Bed 15 Private MD: ED Physician Ronny Dixon HPI: 09/14 11:16 This 88 yrs old Female presents to ER via EMS with complaints of Leg Pain. nevaeh 11:16 The patient presents with decreased range of motion, pain, that is acute. The nevaeh complaints affect the lateral aspect of right thigh, lateral aspect of right knee, lateral aspect of right calf, right quadriceps, right knee and right mojica. Context: resulted from a direct blow, the patient falling, the patient can partially bear weight. Onset: The symptoms/episode began/occurred 2 day(s) ago. Modifying factors: The symptoms are alleviated by remaining still, the symptoms are aggravated by movement. Associated signs and symptoms: Pertinent positives: swelling. Treatment prior to arrival includes: sling, splinting the affected extremity. Severity of symptoms: At their worst the symptoms were moderate, in the emergency department the symptoms are unchanged. The patient has not experienced similar symptoms in the past. Historical: - Allergies: 11:12 Tape; db - PMHx: 11:12 Anxiety; diabetes mellitus; Hypercholesterolemia; Hypertensive disorder; Hypothyroidism;db - Immunization history:: Adult Immunizations unknown. - Social history:: Smoking status: Patient denies any tobacco usage or history of. - Family history:: not pertinent. ROS: 11:16 Constitutional: Negative for fever, chills, and weight loss, Eyes: Negative for injury, nevaeh pain, redness, and discharge, ENT: Negative for injury, pain, and discharge, Neck: Negative for injury, pain, and swelling, Cardiovascular: Negative for chest pain, palpitations, and edema, Respiratory: Negative for shortness of breath, cough, wheezing, and pleuritic chest pain, Abdomen/GI: Negative for abdominal pain, nausea, vomiting, diarrhea, and constipation, Back: Negative for injury and pain, : Negative for injury, bleeding, discharge, and swelling, Skin: Negative for injury, rash, and discoloration, Neuro: Negative for headache, weakness, numbness, tingling, and seizure, Psych: Negative for depression, anxiety, suicide ideation, homicidal ideation, and hallucinations, Allergy/Immunology: Negative for hives, rash, and allergies, Endocrine: Negative for neck swelling, polydipsia, polyuria, polyphagia, and marked weight changes, Hematologic/Lymphatic: Negative for swollen nodes, abnormal bleeding, and unusual bruising, 11:16 MS/extremity: Positive for decreased range of motion, pain, swelling, tenderness, of the right leg, Exam: 11:16 Constitutional: This is a well developed, well nourished patient who is awake, alert, nevaeh and in no acute distress. Head/Face: Normocephalic, atraumatic. Eyes: Pupils equal round and reactive to light, extra-ocular motions intact. Lids and lashes normal. Conjunctiva and sclera are non-icteric and not injected. Cornea within normal limits. Periorbital areas with no swelling, redness, or edema. ENT: Nares patent. No nasal discharge, no septal abnormalities noted. Tympanic membranes are normal and external auditory canals are clear. Oropharynx with no redness, swelling, or masses, exudates, or evidence of obstruction, uvula midline. Mucous membranes moist. Neck: Trachea midline, no thyromegaly or masses palpated, and no cervical lymphadenopathy. Supple, full range of motion without nuchal rigidity, or vertebral point tenderness. No Meningismus. Chest/axilla: Normal chest wall appearance and motion. Nontender with no deformity. No lesions are appreciated. Cardiovascular: Regular rate and rhythm with a normal S1 and S2. No gallops, murmurs, or rubs. Normal PMI, no JVD. No pulse deficits. Respiratory: Lungs have equal breath sounds bilaterally, clear to auscultation and percussion. No rales, rhonchi or wheezes noted. No increased work of breathing, no retractions or nasal flaring. Abdomen/GI: Soft, non-tender, with normal bowel sounds. No distension or tympany. No guarding or rebound. No evidence of tenderness throughout. Back: No spinal tenderness. No costovertebral tenderness. Full range of motion. Skin: Warm, dry with normal turgor. Normal color with no rashes, no lesions, and no evidence of cellulitis. Neuro: Awake and alert, GCS 15, oriented to person, place, time, and situation. Cranial nerves II-XII grossly intact. Motor strength 5/5 in all extremities. Sensory grossly intact. Cerebellar exam normal. Normal gait. Psych: Awake, alert, with orientation to person, place and time. Behavior, mood, and affect are within normal limits. 11:16 Musculoskeletal/extremity: ROM: limited active range of motion due to pain, limited passive range of motion due to pain, Circulation is intact in all extremities. Sensation intact. Compartment Syndrome exam of affected extremity: is normal. Weight bearing: is unable to bear weight, 13:19 ECG was reviewed by the Attending Physician. [facility] Vital Signs: 11:04 BP 187 / 77; Pulse 70; Resp 18; Temp 98.7(O); Pulse Ox 100% on R/A; Weight 54.43 kg; db Height 5 ft. 6 in. ; Pain 9/10; 12:00 BP 166 / 86; Pulse 70; Resp 20; Pulse Ox 100% on R/A; db 12:49 BP 172 / 60; Pulse 68; Resp 18; Pulse Ox 100% on R/A; db 13:30 BP 178 / 62; Pulse 64; Resp 18; Pulse Ox 100% on R/A; db 14:00 BP 181 / 67; Pulse 70; Resp 18; Pulse Ox 100% on R/A; db 11:04 Body Mass Index 19.37 (54.43 kg, 167.64 cm) db 11:04 Pain Scale: Adult db Thais Coma Score: 11:16 Eye Response: spontaneous(4). Motor Response: obeys commands(6). Verbal Response: nevaeh oriented(5). Total: 15. MDM: 11:13 Patient medically screened. nevaeh 11:26 Differential diagnosis: closed fracture, contusion, tendonitis. Data reviewed: [facility] signs, nurses notes, EMS record, radiologic studies, CT scan, plain films. Consideration of Admission/Observation Patient was admitted/placed on observation. Escalation of care including admission/observation considered. I considered the following discharge prescriptions or medication management in the emergency department Medications were administered in the Emergency Department. See MAR. Independent interpretation of the following test(s) in the Emergency Department EKG: See my EKG interpretation above X-Ray: My interpretation is RO FX. CT Scan: My interpretation is CT TRAUMA. windows system admin:. Test considered but Not performed: MRI: NO MRI. Historians other than the Patient: Family Member: FAMILY WELL INFORMED. Care significantly affected by the following chronic conditions: Diabetes, Hypertension, ANXIETY, HIGH CHOLESTEROL. 09/14 11:15 Order name: Basic Metabolic Panel; Complete Time: 12:25 [facility] 09/14 11:15 Order name: CBC with Diff; Complete Time: 13:05 [facility] 09/14 11:15 Order name: LFT's; Complete Time: 12:25 [facility] 09/14 11:15 Order name: Magnesium; Complete Time: 12:25 [facility] 09/14 11:15 Order name: NT PRO-BNP; Complete Time: 12: [facility] 09/14 11:15 Order name: PT-INR; Complete Time: 12:25 [facility] 09/14 11:15 Order name: Troponin HS; Complete Time: 12:25 [facility] 09/14 11:15 Order name: Lipase; Complete Time: 12: [facility] 09/14 11:32 Order name: Urinalysis w/ reflexes; Complete Time: 12:28 [facility] 09/14 11:49 Order name: CBC Smear Scan; Complete Time: 13: [facility] [place] 09/14 13:11 Order name: Glucose, Ancillary Testing [facility] [place] 09/14 14:11 Order name: Glucose, Ancillary Testing [facility] [place] 09/14 11:15 Order name: XRAY Chest (1 view); Complete Time: 13: [facility] 09/14 11:15 Order name: Pelvis XRAY; Complete Time: 13: [facility] 09/14 11:15 Order name: Femur Right XRAY; Complete Time: 13: [facility] 09/14 11:15 Order name: Tib Fib Right XRAY; Complete Time: 13:05 [facility] 09/14 11:15 Order name: INCENTIVE SPIROMETRY [facility] 09/14 12:19 Order name: CT Chest For PE Angio; Complete Time: 13: [facility] 09/14 12:19 Order name: CT Abd/Pelvis - IV Contrast Only; Complete Time: 13:05 [facility] 09/14 12:19 Order name: US Extremity Venous W Compression Nathaniel [facility] 09/14 11:15 Order name: EKG; Complete Time: 11:16 [facility] 09/14 13:40 Order name: CONS Physician Consult [facility] [place] 09/14 11:15 Order name: Cardiac monitoring; Complete Time: 12:37 [facility] 09/14 11:15 Order name: EKG - Nurse/Tech; Complete Time: 12:37 [facility] 09/14 11:15 Order name: IV Saline Lock; Complete Time: 11:36 [facility] 09/14 11:15 Order name: Labs collected and sent; Complete Time: 11:37 [facility] 09/14 11:15 Order name: O2 Per Protocol; Complete Time: 12: [facility] 09/14 11:15 Order name: O2 Sat Monitoring; Complete Time: 12: [facility] EC:19 Rate is 68 beats/min. Rhythm is regular. QRS Independence is Normal. PA interval is normal. QRS nevaeh interval is normal. QT interval is normal. No Q waves. T waves are Normal. No ST changes noted. Clinical impression: NSR w/ Non-specific ST/T Changes and No evidence of ischemia. Interpreted by me. Reviewed by me. Administered Medications: 13:06 Discontinued: ns 0.9% 1000 ml IV at 125 ml/hr continuous [facility] 11:35 Drug: Diazepam PO 5 mg PO once Route: PO; db 15:02 Follow up: Response: No adverse reaction db 11:45 Drug: NS 0.9% IV 250 ml IV at bolus once Route: IV; Rate: bolus; Site: left antecubital;db 12:14 Follow up: Response: No adverse reaction; IV Status: Completed infusion; IV Intake: tl4 250ml 11:53 Drug: Ketorolac IVP 15 mg IVP once Route: IVP; Site: left antecubital; db 15:02 Follow up: Response: No adverse reaction db 11:53 Drug: fentaNYL (PF) IVP 25 mcg IVP once Route: IVP; Site: left antecubital; db 15:03 Follow up: Response: No adverse reaction db 11:54 Drug: Ondansetron IVP 4 mg IVP once; over 2 minutes Route: IVP; Site: left antecubital; db 15:03 Follow up: Response: No adverse reaction db 11:58 Drug: Famotidine IVP 20 mg IVP once; dilute with 10 mL 0.9% NaCl; give over 2 minutes db Route: IVP; Site: left antecubital; 15:02 Follow up: Response: No adverse reaction db 12:14 Drug: NS 0.9% IV 1000 ml IV at 125 ml/hr continuous Route: IV; Rate: 125 ml/hr; Site: tl4 left antecubital; Delivery: Primary tubing; 13:08 Drug: Insulin Regular Human IVP 8 units IVP once {Co-Signature: tl4 (Imtiaz Casanova RN).} Route: IVP; Site: left antecubital; 15:02 Follow up: Response: No adverse reaction db 13:14 Drug: Insulin Glargine Sub-Q 25 units Sub-Q once {Co-Signature: tl4 (Imtiaz Casanova RN).} Route: Sub-Q; Site: left upper arm; 15:02 Follow up: Response: No adverse reaction db 13:14 Drug: Enoxaparin Sub-Q 1 mg/kg Sub-Q once Route: Sub-Q; Site: left lower abdomen; db 15:02 Follow up: Response: No adverse reaction db 13:22 Drug: Furosemide IVP 20 mg IVP once; give over 2 minutes Route: IVP; Site: left db antecubital; 15:02 Follow up: Response: No adverse reaction db 13:35 Not Given (Patient Refused; took this amm): aspirinchewable tablet 81 mg PO once db 13:36 Not Given (Patient Refused; took medication this AM): toprol xl25 mg PO once db Point of Care Testing: Blood Glucose: 13:00 Blood Glucose: 348 mg/dL; tl4 14:00 Blood Glucose: 341 mg/dL; db Ranges: Critical Glucose Levels:Adult <50 mg/dl or >400 mg/dl <40 mg/dl or >180 mg/dl Disposition Summary: 09/15/23 13:18 Hospitalization Ordered Notes: Hospitalization Status: Inpatient Admission nevaeh Provider: Brit Mai cha Location: Telemetry/MedSurg (Inpatient) nevaeh Condition: Fair nevaeh Problem: new nevaeh Symptoms: have improved nevaeh Bed/Room Type: Standard nevaeh Room Assignment: 202(09/15/23 14:08) ja1 Diagnosis - Fall on same level, unspecified nevaeh - Pain in right lower leg nevaeh - Type 2 diabetes mellitus with hyperglycemia nevaeh - Essential (primary) hypertension nevaeh - Combined systolic (congestive) and diastolic (congestive) heart failure nevaeh - 4-part fracture of surgical neck of right humerus, sequela nevaeh Forms: - Medication Reconciliation Form nevaeh - SBAR form nevaeh - Leadership Thank You Letter nevaeh Signatures: Dispatcher [employer] Ronny Peterson MD MD cha Aguilar, Jose RN RN ja1 Corrine Dejesus Danielle, RN RN db Imtiaz Casanova RN RN tl4 Imtiaz Casanova RN tl4 Corrections: (The following items were deleted from the chart) 12:24 11:16 Chest Abdomen Pelvis W Con+CT.RAD.BRZ ordered. EDMS EDMS 13:43 13:18 nevaeh eb 14:08 13:43 230 eb ja1
--- NOTE | 2023-09-15 13:31 | RAD REPORT ---
EXAM DESCRIPTION: US - Extrem Venous W Compress Nathaniel - 09/15/2023 1:26 pm CLINICAL HISTORY: PAIN Bilateral leg edema and swelling. COMPARISON: No comparisons TECHNIQUE: Real-time sonographic interrogation of the left and right lower extremity deep venous sys tems was performed. FINDINGS: Normal compressibility, flow augmentation, phasic flow and spontaneous flow is identified in both the left and right lower extremity deep venous systems. IMPRESSION: No sonographic evidence of left or right lower extremity deep venous thrombosis.
--- NOTE | 2023-09-15 13:36 | P.HP ---
Certification for Inpatient Patient admitted to: Inpatient With expected LOS: <2 Midnights <Shital Lopez - Last Filed: 09/15/23 15:33> Patient History Date of Service: 09/15/23 History of Present Illness: 88-year-old female with a past medical history of hypertension, hyperlipidemia, hypothyroidism, diabetes, presents to the emergency room for fall, right hip pain, right humerus nondisplaced fracture, intractable pain. She reported falling 2 days ago, being seen in the emergency room. She reports falling in the shower. She reports ambulating with a walker as baseline. Reports mild chest pressure, nonradiating, shortness of breath with exertion. Denies syncope, dizziness, edema, fever, nausea vomiting diarrhea lives at [facility] assisted [facility] with spouse. Good family support. Plan to admit for right nondisplaced humerus fracture, fall, elevated troponin, acute on chronic heart failure, vital signs BP 187 / 77; Pulse 70; Resp 18; Temp 98.7(O); Pulse Ox 100% on R/A; Weight 54.43 kg; Height 5 ft. 6 in. ; Pain 9/10. EKG s 63 beats/min. Rhythm is regular. QRS [place] is Normal. MD interval is normal. QRS interval is normal. QT interval is normal. No Q waves. T waves are Normal. No ST changes noted. Clinical impression: NSR w/ Non-specific ST/T Changes, laboratory evaluation elevated troponin 240.0, elevated BNP 894, 2691, mild hyponatremia 130 09/15/23 CTA of the chest IMPRESSION: No evidence of pulmonary thromboembolism. Mild CHF pattern. Proximal right humeral fracture. 08/26/2023 ultrasound of the extremity IMPRESSION: No sonographic evidence of left or right lower extremity deep venous thrombosis. 09/15/[address] IMPRESSION: No acute intra-abdominal or pelvic finding. Large amount of stool retained in the colon. 08/26/2023 tib-fib x-ray FINDINGS: Prominent diffuse osteopenia. Moderate vascular calcification. No acute fracture or dislocation 09/15/2023 FINDINGS: Left total hip arthroplasty seen. Diffuse osteopenia. No acute fracture or dislocation seen. Lumbar degenerative changes. Mild atherosclerosis 09/15/2023 right femur x-ray FINDINGS: Diffuse osteopenia is seen. Moderate vascular atherosclerosis. No acute fracture or dislocation. 09/15/2023 right humerus FINDINGS/IMPRESSION: Multipart fracture involving the right proximal humerus. The fracture is displaced superiorly and medially at the surgical neck. Fracture extends into the greater tuberosity. No dislocation. 09/12/2023 hip x-ray FINDINGS/IMPRESSION: No right hip fracture or dislocation. Mild right acetabular degenerative changes. Peripheral vascular calcifications. 09/12/23 CTA/ spine head No fracture or subluxation. IMPRESSION: Comminuted mult ipart fracture involving the right proximal humerus. No dislocation. No other evidence of significant acute trauma - Past Medical/Surgical History Past Medical History: Patient denies medical history -: Hypertension -: Diabetes type 1 - Social History Smoking Status: Never smoker Smoking therapy provided: No Alcohol use: No CD- Drugs: No Caffeine use: Yes <Shital Lopez - Last Filed: 09/15/23 15:33> Date of Service: 09/15/23 <Brit Mai - Last Filed: 09/15/23 16:12> Allergies adhesive tape Allergy (Verified 09/15/23 15:32) Itching Review of Systems PER HPI <Shital Lopez - Last Filed: 09/15/23 15:33> Physical Examination - Physical Exam General: Alert, In no apparent distress, Oriented x3 HEENT: Atraumatic, Normocephalic Neck: Supple, 2+ carotid pulse no bruit Respiratory: Normal air movement, Diminished Cardiovascular: Normal pulses, Regular rate/rhythm Gastrointestinal: Normal bowel sounds, Soft and benign Musculoskeletal: Other (Right shoulder pain, right lower extremity leg pain) Integumentary: No rashes, No breakdown Neurological: Normal speech, Normal strength at 5/5 x4 extr - Studies Laboratory Data (last 24 hrs) 09/15/23 09/15/23 09/15/23 11:30 11:30 11:30 WBC 10.80 Hgb 11.1 L Hct 33.2 L Plt Count 705 H PT 13.3 H INR 1.22 Sodium 130 L Potassium 4.4 BUN 19 H Creatinine 1.04 H Glucose 374 H Magnesium 1.9 Total Bilirubin 0.9 AST 10 L ALT 13 Alkaline Phosphatase 75 Lipase 11 L <Shital Lopez - Last Filed: 09/15/23 15:33> - Studies Laboratory Data (last 24 hrs) 09/15/23 09/15/23 09/15/23 11:30 11:30 11:30 WBC 10.80 Hgb 11.1 L Hct 33.2 L Plt Count 705 H PT 13.3 H INR 1.22 Sodium 130 L Potassium 4.4 BUN 19 H Creatinine 1.04 H Glucose 374 H Magnesium 1.9 Total Bilirubin 0.9 AST 10 L ALT 13 Alkaline Phosphatase 75 Lipase 11 L <Brit Mai - Last Filed: 09/15/23 16:12> Assessment and Plan - Plan Assessment plan NSTEMI Hypertensive urgency Elevated troponin Acute on chronic heart failure Cardiology, consult, telemetry Trend troponin Lovenox 1 mg/kg Resume appropriate home meds Reports mild chest pressure, nonradiating, shortness of breath with exertion. Echo ordered BP 187 / 77; Pulse 70; Resp 18; Temp 98.7(O); Pulse Ox 100% on R/A; Weight 54.43 kg; Height 5 ft. 6 in. ; Pain 9/10. EKG s 63 beats/min. Rhythm is regular. QRS [place] is Normal. MD interval is normal. QRS interval is normal. QT interval is normal. No Q waves. T waves are Normal. No ST changes noted. Clinical impression: NSR w/ Non-specific ST/T Changes, laboratory evaluation elevated troponin 240.0, elevated BNP 894, 2691, mild hyponatremia sodium 130 Fall right hip pain right humerus nondisplaced fracture intractable pain Orthopedic consult, as needed analgesics, as needed stool softener Fall precautions, PT consult patient request rehab evaluation She reported falling 2 days ago, being seen in the emergency room. She reports falling in the shower. She reports ambulating with a walker as baseline. 09/15/23 CTA of the chest IMPRESSION: No evidence of pulmonary thromboembolism. Mild CHF pattern. Proximal right humeral fracture. 08/26/2023 ultrasound of the extremity IMPRESSION: No sonographic evidence of left or right lower extremity deep venous thrombosis. 09/15/[address] IMPRESSION: No acute intra-abdominal or pelvic finding. Large amount of stool retained in the colon. 08/26/2023 tib-fib x-ray FINDINGS: Prominent diffuse osteopenia. Moderate vascular calcification. No acute fracture or dislocation 09/15/2023 FINDINGS: Left total hip arthroplasty seen. Diffuse osteopenia. No acute fracture or dislocation seen. Lumbar degenerative changes. Mild atherosclerosis 09/15/2023 right femur x-ray FINDINGS: Diffuse osteopenia is seen. Moderate vascular atherosclerosis. No acute fracture or dislocation. 09/15/2023 right humerus FINDINGS/IMPRESSION: Multipart fracture involving the right proximal humerus. The fracture is displaced superiorly and medially at the surgical neck. Fracture extends into the greater tuberosity. No dislocation. 09/12/2023 hip x-ray FINDINGS/IMPRESSION: No right hip fracture or dislocation. Mild right acetabular degenerative changes. Peripheral vascular calcifications. 09/12/23 CTA/ spine head No fracture or subluxation. IMPRESSION: Comminuted multipart fracture involving the right proximal humerus. No dislocation. No other evidence of significant acute trauma Essential hypertension hyperlipidemia hypothyroidism resume home meds diabetes unknown control Accu-Cheks, sliding scale Resume home meds Disposition lives at [facility] with spouse, uses a walker at baseline. Request inpatient rehab after discharge Discharge Plan: Senior Living ([facility]) - Advance Directives Does patient have a Living Will: No Does patient have a Durable POA for Healthcare: No - Code Status/Comfort Care Code Status: Full Code Critical Care: No Time Spent Managing Pts Care (In Minutes): 55 <Shital Lopez - Last Filed: 09/15/23 15:33> - Plan Pt seen and examined. I agree with the note by the GROUP HOME PARAPROFESSIONAL. Pt is an 88 yrs old female with past medical history of Anxiety, diabetes mellitus, Hypercholesterolemia, Hypertension, and Hypothyroidism who presents with right shoulder and leg pain. Pt fell in the bathroom on . She tripped while trying to reach her towel. Pt denies any dizziness or loss of conscious ness. She landed on her right hip and shoulder. Pt was able to put partial weight onher right leg. The right leg pain worsened and pt decided to come to the ER for evaluation. Movement makes it worse. Pt has a right shoulder sling in place. On admission, lab studies show wbc 10.8, hgb 11.1, platelet 705, K 4.4, Cr 1.04, glucose 374, troponin 240, BNP 2691. Imaging studies show right houlder fracture. At bedside, pt is in NAD. A/P: Shoulder fracture: No surgical intervention at the moment. Consulted ortho. Will immobilized the right arm. Continue prn pain med Elevated BNP: BNP is 2691. Will f/u with Echo to r/o CHF. CXR shows moderate CHF. Will give lasix 40mg po daily, strict I/O and daily. Elevated troponin: troponin is 240. Will trend troponin Q6h. Pt denies any chest pain Htn: continue home med DM II: continue accuchek, SSI, lantus 18u qhs and ADA diet Constipation: Prn miralax. HLD: statin Hypothyroidism: Synthroid. Code: DNR <Brit Mai - Last Filed: 09/15/23 16:12>
[2023-09-15] MEDS ORDERED: GLUCAGON 1 MG/VIAL IM PRN ×2 (15:40→15:56)
[2023-09-15] MEDS ORDERED: D50W 25 GM/50 ML SYRINGE IV PRN ×2 (15:40→15:56)
[2023-09-15] MEDS ORDERED: MORPHINE 2 MG/ML SYR IV PRN (15:56)
[2023-09-15] MEDS ORDERED: HYDROCODONE/APAP 5/325 MG TAB PO PRN (15:56)
[2023-09-15 15:59] VITALS: BMI 19.7
[2023-09-15] MEDS: INSULIN REGULAR (HUMAN) 100 UNIT/ML SQ SCH (16:30)
[2023-09-15] MEDS: HYDRALAZINE HCL 20 MG/ML VIAL IV PRN (16:45)
[2023-09-15] MEDS: FUROSEMIDE 40 MG/4 ML VIAL IV ONE (16:45)
[2023-09-15] MEDS: INSULIN LISPRO 100 UNIT/ML SQ SCH (16:45)
[2023-09-15] MEDS: INSULIN GLARGINE 100 UNIT/ML SQ SCH (20:59)
[2023-09-15] MEDS: VALSARTAN 160 MG TAB PO SCH (21:00)
[2023-09-15] MEDS: SENOSIDES 8.6 MG TAB PO SCH (21:04)
[2023-09-15] MEDS: METOPROLOL TAR 25 MG TAB PO SCH (21:04)
[2023-09-15] MEDS: ALPRAZOLAM 0.25 MG TABLET PO SCH (21:04)
[2023-09-15] MEDS: ACETAMINOPHEN 500 MG TAB PO PRN (21:04)
[2023-09-15] MEDS: ENOXAPARIN 60 MG/0.6 ML SQ SCH (23:00)
[2023-09-16 04:27] LABS: Absolute Basophils 0.1 K/uL (0-0.5); Absolute Eosinophils 0.3 K/uL (0-0.5); Absolute Lymphocytes (CBC) 0.8 K/uL (0.7-4.9); Absolute Monocytes 0.9 K/uL (0.1-1.3); Basophils % 1.3 % (0-1.3); Eosinophils % 2.8 % (0-4.4); Hematocrit 30.9 % (36.0-45.0); Hemoglobin 10.5 g/dL (12.0-15.0); Lymphocytes % 8.3 % (15.3-44.8); MCH 31.7 pg (27.0-35.0); MCHC 33.9 g/dL (32.0-36.0); MCV 93.5 fL (80-100); MPV 8.3 fL (7.6-11.3); Monocytes % 9.6 % (3.3-12.3); Nucleated Red Blood Cells % 0.1 % (0-0); Platelets 641 thou/uL (152-406); RBC Red Blood Cell Count 3.31 M/uL (3.86-4.86)
[2023-09-16 05:05] LABS: Anion Gap 6.9 mEq/L (5.0-15.0); Magnesium 1.9 mg/dL (1.6-2.4); Potassium 3.9 mEq/L (3.5-5.1)
[2023-09-16] MEDS: LEVOTHYROXINE SOD 0.075 MG TAB PO SCH (05:39)
--- NOTE | 2023-09-16 08:43 | P.PN ---
Subjective Date of Service: 09/16/23 Chief Complaint: right shoulder/hip pain post fall in shower Subjective: Tolerating diet, Improving, Other (denies CP, increased movement of right lower extremity. Right arm remains in sling, pulses present, sensation intact) <SimpsonGuadalupe - Last Filed: 09/16/23 08:43> Date of Service: 09/17/23 <Brit Mai Sidney - Last Filed: 09/17/23 22:36> Review of Systems 10-point ROS is otherwise unremarkable General: As per HPI Eyes: As per HPI ENT: As per HPI Respiratory: As per HPI Musculoskeletal: As per HPI Neurological: As per HPI <Guadalupe Simpson - Last Filed: 09/16/23 08:43> Physical Examination - Vital Signs Temperature: 97.1 F Blood Pressure: 164/74 Pulse: 63 Respirations: 16 Pulse Ox (%): 95 - Physical Exam General: Alert, In no apparent distress, Oriented x3 HEENT: Atraumatic, Normocephalic, PERRLA Neck: Supple Respiratory: Clear to auscultation bilaterally, Normal air movement Cardiovascular: Regular rate/rhythm Capillary refill: <2 Seconds Gastrointestinal: Normal bowel sounds, Soft and benign Musculoskeletal: No clubbing, No swelling, Other (full ROM right lower extremity, right arm in sling, tenderness about the shoulder, posteriorly, sensation and pulses intact) Integumentary: No rashes Neurological: Normal speech, Normal tone Lymphatics: No axilla or inguinal lymphadenopathy External genitalia: Deferred Rectal: Deferred - Studies Laboratory Data (last 24 hrs) 09/15/23 09/15/23 09/15/23 11:30 11:30 11:30 WBC 10.80 Hgb 11.1 L Hct 33.2 L Plt Count 705 H PT 13.3 H INR 1.22 Sodium 130 L Potassium 4.4 BUN 19 H Creatinine 1.04 H Glucose 374 H Magnesium 1.9 Total Bilirubin 0.9 AST 10 L ALT 13 Alkaline Phosphatase 75 Lipase 11 L <Celsa Simpsony Maynor - Last Filed: 09/16/23 08:43> Assessment And Plan - Plan A/P: Shoulder fracture: No surgical intervention at the moment. Consulted ortho. Sling to right arm. Continue prn pain med Elevated BNP: BNP is 2691. Will f/u with Echo to r/o CHF. CXR shows moderate CHF. Will give lasix 40mg po daily, strict I/O and daily. Elevated troponin: troponin is 240. Troponin increased but pt denies any chest pain Htn: continue home med DM II: continue accuchek, SSI, lantus 18u qhs and ADA diet, FSBS this am 166mg/dL Constipation: Prn miralax. HLD: statin Hypothyroidism: Synthroid. Code: DNR Discharge Plan: Other (inpatient rehab) - Code Status/Comfort Care Code Status: Do Not Attempt Resuscitat Critical Care: No <Guadalupe Simpson - Last Filed: 09/16/23 08:43> - Plan Pt seen and examined. I agree with the note by the LOOM REPAIRER. Pt has right shoulder sling in place. Waiting for Cardiology eval. <Brit Mai - Last Filed: 09/17/23 22:36>
[2023-09-16] MEDS: HYDROXYUREA 500 MG CAP PO SCH (09:21)
[2023-09-16] MEDS: FUROSEMIDE 40 MG TABLET PO SCH (09:21)
[2023-09-16] MEDS: GABAPENTIN 300 MG CAP PO SCH (09:21)
[2023-09-16] MEDS: POTASSIUM CL SA 10 MEQ TAB PO ONE (09:22)
--- NOTE | 2023-09-16 11:00 | P.CNS ---
Date of Consult: 09/16/23 Chief Complaint: right shoulder/hip pain post fall in shower History of Present Illness: Patient with PMH of HTN, HLD, DM, recent fall, humerus fracture, presented with weakness, presented with chest pain, pressure in nature across chest, waxing and weaning, that has been going on for some time but got worse on the last few days and overnight associated with SOB. Allergies adhesive tape Allergy (Verified 09/15/23 15:32) Itching Home Medications: ALPRAZolam [Xanax] 0.25 mg PO BID 09/15/23 Acetaminophen with Codeine [Acetaminophen-Cod #3 Tablet] 300 mg PO Q4HR PRN 09/15/23 Ferrous Sulfate [Feosol] 325 mg PO BID 09/15/23 Levothyroxine [Synthroid] 75 mcg PO [id number] 09/15/23 Mag Hydroxide 8% [Milk Of Magnesia] 15 ml PO PRN PRN 09/15/23 RX: Acetaminophen 500 mg PO Q6HR PRN 09/15/23 RX: Aspirin 81 mg PO EVERY 3RD DAY 09/15/23 RX: Biotin 1,000 mcg PO EVERY 3RD DAY 09/15/23 RX: Buspirone HCl 10 mg PO BID 09/15/23 RX: Furosemide 20 mg PO DAILY 09/15/23 RX: Gabapentin 300 mg PO DAILY 09/15/23 RX: Hydroxyurea 500 mg PO DAILY 09/15/23 RX: Ibuprofen 200 mg PO PRN PRN 09/15/23 RX: Insulin Lispro See Protocol SQ ACHS 09/15/23 RX: Metoprolol Tartrate 12.5 mg PO BID 09/15/23 RX: Olmesartan Medoxomil 40 mg PO BID 09/15/23 RX: Pravastatin Sodium 10 mg PO DAILY 09/15/23 RX: Zinc Sulfate [Zinc Sulfate*] 220 mg PO DAILY 09/15/23 - Past Medical/Surgical History Diabetic: Yes -: Hypertension -: Diabetes type 1 -: hip replacement -: kidney stone removal -: removal of 1 ovary - Social History Alcohol use: No CD- Drugs: No Caffeine use: Yes Place [place] Residence[place] Review of Systems 10-point ROS is otherwise unremarkable Physical Examination Temp Pulse Resp BP Pulse Ox 97.1 F 63 16 164/74 H 95 09/16/23 08:45 09/16/23 08:45 09/16/23 08:45 09/16/23 08:45 09/16/23 08:45 General: Alert, Oriented x3 HEENT: Atraumatic Neck: Supple Respiratory: Clear to auscultation bilaterally Cardiovascular: No edema, Normal S1 S2 Gastrointestinal: Normal bowel sounds Laboratory Data (last 24 hrs) 09/15/23 09/15/23 09/15/23 11:30 11:30 11:30 WBC 10.80 Hgb 11.1 L Hct 33.2 L Plt Count 705 H PT 13.3 H INR 1.22 Sodium 130 L Potassium 4.4 BUN 19 H Creatinine 1.04 H Glucose 374 H Magnesium 1.9 Total Bilirubin 0.9 AST 10 L ALT 13 Alkaline Phosphatase 75 Lipase 11 L - Problems (1) NSTEMI (non-ST elevated myocardial infarction) Current Visit: Yes Status: Acute Plan: Plan is to proceed with coronary angiogram, explained in details to patient and family and agrees to proceed. continue ASA, Lovenox. (2) HTN (hypertension) Current Visit: Yes Status: Acute Plan: Continue Vlasartan, Lopressor. (3) HLD (hyperlipidemia) Current Visit: Yes Status: Acute Plan: start patient in Lipitor 40 mg daily.
[2023-09-16] MEDS: NA CHLORIDE 0.9% 500 ML ONE (12:52)
--- NOTE | 2023-09-16 12:54 | ECHO ---
HEIGHT: 5 ft 6 in WEIGHT: 122 lb 0 oz DATE OF STUDY: 09/16/[address]: Shital Lopez DIRECTOR [facility] 2-DIMENSIONAL: YES M.MODE: YES DOPPLER: YES COLOR FLOW: YES TDS: PORTABLE: YES DEFINITY: BUBBLE STUDY: DIAGNOSIS: ACUTE ON CHRONIC CONGESTIVE HEART FAILURE CARDIAC HISTORY: CATHERIZATION: YES SURGERY: NO PROSTHETIC VALVE: NO PACEMAKER: NO MEASUREMENTS (cm) DIASTOLIC (NORMALS) SYSTOLIC (NORMALS) IVSd 0.9 (0.6-1.2) LA Diam 3.1 (1.9-4.0) LVEF 67% LVIDd 3.6 (3.5-5.7) LVIDs 2.3 (2.0-3.5) %FS 36% LVPWd 1.1 (0.6-1.2) Ao Diam 2.4 (2.0-3.7) 2 DIMENSIONAL ASSESSMENT: RIGHT ATRIUM: DILATED LEFT ATRIUM: SEVERE ENLARGED RIGHT VENTRICLE: NORMAL LEFT VENTRICLE: NORMAL TRICUSPID VALVE: MILD TRICUSPID REGURGITATION MITRAL VALVE: MODERATE MITRAL ANNULAR CALCIFICATION, TRACE MITRAL REGURGITATION PULMONIC VALVE: NORMAL AORTIC VALVE: NORMAL PERICARDIAL EFFUSION: NONE AORTIC ROOT: NORMAL LEFT VENTRICULAR WALL MOTION: NORMAL DOPPLER/COLOR FLOW: GRADE II DIASTOLIC DYSFUNCTION COMMENTS: 1. NORMAL LEFT VENTRICULAR SYSTOLIC EJECTION FRACTION 55-60%, NORMAL WALL MOTION 2. GRADE II DIASTOLIC DYSFUNCTION 3. SEVERE ENLARGED LEFT ATRIUM, DILATED RIGHT ATRIUM 4. MILD TO MODERATE TRICUSPID REGURGITATION WITH SEVERE PULMONARY HYPERTENSION (RIGHT VENTRICULAR SYSTOLIC PRESSURE GREATER THAN 60 mmHg) TECHNOLOGIST: FRANCISCO NEVILLE
[2023-09-16] MEDS ORDERED: HEPA 1000U/500MLS 2,000 UNIT/1,000 ML BAG IV ONE (14:12)
[2023-09-16] MEDS ORDERED: LIDOCAINE 1% 20 ML MDV ONE (14:12)
--- NOTE | 2023-09-16 14:16 | EKG ---
Test Date: 2023-09-15 Test Time: 12:04:31 Instrument Operator: TAMMI MEASUREMENT RESULTS: Intervals: Rate: 68 DE: 172 QRSD: 90 QT: 448 QTc: 476 [place]: P: 97 DE: 172 QRS: 102 T: 107 INTERPRETIVE STATEMENTS: Suspect arm lead reversal, interpretation assumes no reversal Sinus rhythm with premature atrial complexes Lateral infarct, age undetermined Abnormal ECG Compared to ECG 09/12/2023 09:35:46 Atrial premature complex(es) now present Myocardial infarct finding now present Electronically Signed On 09-16-23 14:13:51 CDT by Abdiaziz Roberts
[2023-09-16] MEDS ORDERED: VERAPAMIL HCL 10 MG/4 ML VIAL IV ONE (14:24)
[2023-09-16] MEDS ORDERED: FENTANYL CITR 100 MCG/2 ML ONE (14:24)
[2023-09-16] MEDS ORDERED: TICAGRELOR 90 MG TABLET PO ONE (14:25)
[2023-09-16] MEDS ORDERED: MIDAZOLAM HCL 2 MG/2 ML INJ ONE (14:25)
[2023-09-16] MEDS ORDERED: ATROPINE SULF 1 MG/10 ML SYR IV ONE (14:25)
[2023-09-16] MEDS ORDERED: HEPARIN 5000 UNIT/ML 1 ML VIAL ONE (14:25)
[2023-09-16] MEDS ORDERED: CLOPIDOGREL 75 MG TABLET ONE (14:26)
[2023-09-16] MEDS ORDERED: ASPIRIN 325 MG TAB ONE (14:26)
[2023-09-16] MEDS ORDERED: HEPARIN 10,000 UNIT/10 ML VIAL IV ONE (14:26)
[2023-09-16] MEDS ORDERED: HYDRALAZINE HCL 20 MG/ML VIAL ONE (15:01)
[2023-09-16] MEDS ORDERED: ONDANSETRON 4 MG/2 ML VIAL ONE (15:27)
[2023-09-16] MEDS ORDERED: NITROGLYCERIN 0.4 MG/TAB SL ONE (15:38)
[2023-09-16] MEDS: INSULIN LISPRO 100 UNIT/ML SQ SCH (21:37)
--- NOTE | 2023-09-16 21:39 | CON ---
Date of Consultation: 09/16/2023 History Of Present Illness: I have seen this patient in the past, however, not for this problem. Lauren walter apparently was doing fairly well, ambulatory at home until she unfortunately fell and injured her r ight side. She was seen and examined in the emergency department where she was found to have a commi nuted displaced fracture of the right proximal humerus. Also was complaining of significant pain rel ated to her right lower extremity. She has had imaging of her right lower extremity, which does not find any fracture or dislocation, but was admitted to the floor. Also, has cardiac enzymes, which ap parently were elevated and is being worked up for possibility of a cardiac issue by the medical staff . I am called to see her primarily for humerus. On seeing her, her family is in the room and they s burt that she was having difficulty even standing and felt like her leg was going out from underneath her. Physical Examination: On physical examination of her right lower extremity, she has good active motion of hip, knee, ankle, and foot. There is a trace effusion to the knee, although she is stable to stress testing and can p erform a straight leg raise. She is complaining of pain diffusely of the right lower extremity, but cannot really detect any point of maximal tenderness. With regard to her right shoulder, she is neur ovascularly intact and the right shoulder is in a sling. Imaging: Review of the x-rays demonstrate no fracture of the lower extremity, but there is a comminu keri fracture seen on CT scan of the right proximal humerus. Assessment And Plan: I have discussed treatment with her family as well as the patient and we will h ave PT try to mobilize her as tolerated. She will continue to use the sling for her shoulder with in structions for range of motion of the elbow, wrist, hand, and fingers. We will see her back in our c linic. We will continue to treat her shoulder nonoperatively. We did discuss the possibility of ope rative intervention, but given her advanced age and possible cardiac issues, we will treat this nonop eratively and discussed expected results regarding that. They state they understand everything as presented. /JUSTINAL Voice ID: [id number] Report ID: [id number]
--- NOTE | 2023-09-17 01:54 | OP ---
Date of Procedure: 09/16/2023 Surgeon: ELLIOT LEA Procedures Performed: 1.Selective coronary angiogram. 2.Left heart catheterization. 3.Failed attempt percutaneous coronary intervention of critical mid left anterior descending artery stenosis. Indication: [id number] myocardial infarction. Access: Right femoral artery, 6-Tajik, closed with 6-Tajik Angio-Seal. Complications: None. Bleeding: Less than 50 mL. Total Sedation Time: 15 minutes, used fentanyl and Versed. Description Of Procedure: After risks, benefits, alternatives were explained, the patient agreed to procedure and signed informed consent. The patient was brought into cardiac catheterization laborato , prepped and draped in usual sterile fashion. Then, I accessed right femoral artery using micropu ncture kit, ultrasound guidance, fluoroscopy. Placed 6-Tajik [place] sheath and took a 6-Tajik JL 4 catheter into the aortic root over a J-wire, engaged left main, took standard views and exchanged f or a 6-Tajik JR4 catheter, engaged the RCA, took standard views. Over the wire, the catheter was pu shed over into the LV, measured the LVEDP. Pullback did not record any gradient. Removed the cathet er and exchanged for a 6-Tajik EBU 3 guide. Engaged the left main and then took a Runthrough wire a fter giving systemic heparin to assure ACT level above 250, but could not cross. Exchanged for a Fie lder XT wire and could not cross the stenosis. The patient started having some chest pain, so proced ure was aborted. Final angiogram did not show any complication. Decided to abort the procedure and transfer for consideration for single-vessel CABG versus complex PROPERTY TECHNICIAN procedure at [facility]. Findings: 1.Left main: Moderate size and normal. 2.LAD: Luminal regularities throughout. Mid segment, diffuse 50% to 60% and then becomes 100% occl uded with faint collaterals filling the LAD. They are O2 collaterals. 3.Left circumflex: Moderate sized luminal regularities. 4.RCA: Moderate-sized luminal regularities, but is dominant. 5.Elevated LVEDP at 17 mmHg. Conclusion: Severe LAD stenosis, culprit for symptoms, failed PCI. It is heavily calcified, likely PROPERTY TECHNICIAN with O2 collaterals. At this point, I will plan to transfer to [facility] to be kacy luated by CT Surgery to consider single-vessel CABG versus complex PCI for the PROPERTY TECHNICIAN. /MARITZA Voice ID: [id number] Report ID: [id number]
[2023-09-17 03:49] LABS: Absolute Basophils 0.1 K/uL (0-0.5); Absolute Lymphocytes (CBC) 0.3 K/uL (0.7-4.9); Absolute Monocytes 1.2 K/uL (0.1-1.3); Absolute Neutrophil 14.2 K/uL (1.8-8.0); Basophils % 0.5 % (0-1.3); Hematocrit 36.4 % (36.0-45.0); Hemoglobin 11.8 g/dL (12.0-15.0); MCH 30.3 pg (27.0-35.0); MCHC 32.4 g/dL (32.0-36.0); MCV 93.4 fL (80-100); MPV 8.5 fL (7.6-11.3); Monocytes % 7.8 % (3.3-12.3); Platelets 935 thou/uL (152-406); Red Cell Distribution Width 17.1 % (12.1-15.2)
[2023-09-17 04:04] LABS: Neutrophils % 89.7 % (41.7-73.7)
[2023-09-17 04:47] LABS: Anion Gap 16.3 mEq/L (5.0-15.0); Magnesium 2.2 mg/dL (1.6-2.4); Potassium 4.3 mEq/L (3.5-5.1)
[2023-09-17] MEDS ORDERED: D50W 25 GM/50 ML SYRINGE IV PRN (07:17)
[2023-09-17] MEDS ORDERED: GLUCAGON 1 MG/VIAL IM PRN (07:17)
[2023-09-17] MEDS ORDERED: D10W 125 ML IV PRN (07:26)
[2023-09-17] MEDS: INSULIN LISPRO 100 UNIT/ML SQ SCH (08:00)
--- NOTE | 2023-09-17 08:28 | P.PN ---
Subjective Date of Service: 09/17/23 Chief Complaint: right shoulder/hip pain post fall in shower Subjective: New changes (Pt went for [facility] yesterday, unable to stent. Pt and family refused bypass option. This morning Ms. Benjamin is very nauseated, agitated, and feeling strapped down. FSBS is elevated, pt appears dry. increased blood pressures last pm and pt was given apresoline) <SimpsonGuadalupe Mcguire - Last Filed: 09/17/23 08:33> Date of Service: 09/17/23 <Brit Mai - Last Filed: 09/17/23 22:26> Review of Systems 10-point ROS is otherwise unremarkable General: Weakness, Malaise Eyes: Unremarkable ENT: Unremarkable Respiratory: Unremarkable Cardiovascular: As per HPI Gastrointestinal: Nausea, Vomiting Genitourinary: Unremarkable Musculoskeletal: Unremarkable Integumentary: Unremarkable Neurological: Unremarkable Lymphatics: Unremarkable <SimpsonCelsay Maynor - Last Filed: 09/17/23 08:33> Physical Examination - Vital Signs Temperature: 97.5 F Blood Pressure: 150/60 Pulse: 85 Respirations: 15 Pulse Ox (%): 100 - Physical Exam General: Alert, Oriented x3, Mild distress HEENT: Atraumatic, Normocephalic Neck: Supple Respiratory: Normal air movement Cardiovascular: Irregular heart rate/rhythm Capillary refill: <2 Seconds Gastrointestinal: No tenderness, No guarding, Other (severe nausea) Musculoskeletal: Other (right humerus fracture in sling, able to move right lower extremity more, will try to stand with PT today) Integumentary: No rashes Neurological: Normal speech, Normal tone Lymphatics: No axilla or inguinal lymphadenopathy External genitalia: Deferred Rectal: Deferred <Guadalupe Simpsonlen - Last Filed: 09/17/23 08:33> Assessment And Plan - Plan A/P: Shoulder fracture: No surgical intervention at the moment. Consulted ortho. Sling to right arm. Continue prn pain med Elevated BNP: BNP is 2691. Echo to r/o CHF. CXR shows moderate CHF. Will give lasix 40mg po daily, strict I/O and daily. Elevated troponin: troponin is 240. Troponin increased but pt denies any chest pain - went for [facility] 09/16/23 - needs Bypass - pt and family decline Htn: continue home med, increase Metoprolol to 25mg BID from 12.5mg, DM II: continue accuchek, SSI, lantus 18u qhs and ADA diet, FSBS this am 166mg/dL, nausea with increased FSBS today, zofran & SSI given Constipation: Prn miralax. HLD: statin, Cardiology requests started Lipitor 40mg at HS. orders placed Hypothyroidism: Synthroid. Code: DNR <Guadalupe Simpson - Last Filed: 09/17/23 08:33> - Plan Pt seen and examined. 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 Cardiac cath shows CAD. PT declined CABG. Will continue medical therapy. <Brit Mai - Last Filed: 09/17/23 22:26>
[2023-09-17] MEDS: NA CHLORIDE 0.9% 500 ML IV ONE (08:39)
[2023-09-17] MEDS: ONDANSETRON 4 MG/2 ML VIAL IV PRN (08:53)
[2023-09-17] MEDS: METOPROLOL TAR 25 MG TAB PO SCH (09:49)
--- NOTE | 2023-09-17 16:23 | P.PN ---
Subjective Date of Service: 09/17/23 Chief Complaint: right shoulder/hip pain post fall in shower Subjective: No new changes Review of Systems 10-point ROS is otherwise unremarkable Physical Examination - Vital Signs Temperature: 98.6 F Blood Pressure: 167/78 Pulse: 72 Respirations: 18 Pulse Ox (%): 99 - Physical Exam General: Alert, Oriented x3 HEENT: Atraumatic Neck: Supple Respiratory: Clear to auscultation bilaterally Cardiovascular: No edema, Normal S1 S2 Gastrointestinal: Normal bowel sounds Assessment And Plan - Current Problems (Diagnosis) (1) NSTEMI (non-ST elevated myocardial infarction) Current Visit: Yes Status: Acute Plan: Patient had a coronary angiogram that shown significant mid LAD complex disease, failed intervention, plan for medical management. continue ASA 81 mg daily Start Plavix 75 mg daily add Imdur 30 mg daily Stop Lovenox. (2) HTN (hypertension) Current Visit: Yes Status: Acute Plan: Continue Vlasartan, Lopressor. add Imdur 30 mg daily (3) HLD (hyperlipidemia) Current Visit: Yes Status: Acute Plan: start patient in Lipitor 40 mg daily.
--- NOTE | 2023-09-17 17:06 | EKG ---
Test Date: 2023-09-16 Test Time: 01:18:14 [employer] Vendor: ELDER MEASUREMENT RESULTS: Intervals: Rate: 57 MT: 164 QRSD: 90 QT: 452 QTc: 439 [place]: P: 88 MT: 164 QRS: 66 T: 29 INTERPRETIVE STATEMENTS: Sinus bradycardia Septal infarct, age undetermined Abnormal ECG Compared to ECG 09/15/2023 12:04:31 Sinus rhythm no longer present Atrial premature complex(es) no longer present Myocardial infarct finding still present Electronically Signed On 09-17-23 17:01:50 CDT by Abdiaziz Roberts
[2023-09-17] MEDS: ATORVASTATIN 40 MG TAB PO SCH (20:39)
[2023-09-18] MEDS: HYDROCODONE/APAP 5/325 MG TAB PO PRN (00:12)
[2023-09-18 03:35] LABS: Absolute Basophils 0.1 K/uL (0-0.5); Absolute Eosinophils 0.1 K/uL (0-0.5); Absolute Lymphocytes (CBC) 0.6 K/uL (0.7-4.9); Absolute Monocytes 1.6 K/uL (0.1-1.3); Absolute Neutrophil 15.1 K/uL (1.8-8.0); Basophils % 0.3 % (0-1.3); Eosinophils % 0.7 % (0-4.4); Hematocrit 35.1 % (36.0-45.0); Hemoglobin 11.9 g/dL (12.0-15.0); Lymphocytes % 3.4 % (15.3-44.8); MCH 31.2 pg (27.0-35.0); MCHC 33.7 g/dL (32.0-36.0); MCV 92.5 fL (80-100); MPV 7.9 fL (7.6-11.3); Monocytes % 9.4 % (3.3-12.3); Platelets 936 thou/uL (152-406)
[2023-09-18 03:50] LABS: Neutrophils % 86.2 % (41.7-73.7)
[2023-09-18 04:00] LABS: Magnesium 2.2 mg/dL (1.6-2.4)
[2023-09-18] MEDS: ALPRAZOLAM 0.5 MG TABLET PO ONE (05:35)
[2023-09-18] MEDS: FUROSEMIDE 40 MG/4 ML VIAL IV ONE (05:45)
[2023-09-18] MEDS: CLOPIDOGREL 75 MG TABLET PO SCH (08:50)
[2023-09-18] MEDS: ASPIRIN EC 81 MG TAB PO SCH (08:50)
[2023-09-18] MEDS: ISOSORBIDE MONO SR 30 MG TAB PO SCH (08:55)
[2023-09-18] MEDS: ACETAMINOPHEN 500 MG TAB PO ONE (10:07)
[2023-09-18] MEDS: INSULIN LISPRO 100 UNIT/ML SQ SCH (15:40)
--- NOTE | 2023-09-18 16:49 | P.PN ---
Subjective Date of Service: 09/18/23 Chief Complaint: right shoulder/hip pain post fall in shower Subjective: Other (pt has been extremely nauseated every morning since [facility]. FSBS have been elevated. Now noting increase in WBC count. Will draw blood cultures and obtain urine with reflex) Review of Systems 10-point ROS is otherwise unremarkable Respiratory: As per HPI Cardiovascular: As per HPI Gastrointestinal: Nausea, Vomiting Physical Examination - Vital Signs Temperature: 97.8 F Blood Pressure: 131/62 Pulse: 91 Respirations: 18 Pulse Ox (%): 96 - Physical Exam General: Alert, Oriented x3, Mild distress, Other (nausea and unease) HEENT: Atraumatic, Normocephalic Neck: Supple Respiratory: Normal air movement Cardiovascular: Normal pulses, Other (minimal pedal edema) Capillary refill: <2 Seconds Gastrointestinal: Hypoactive Musculoskeletal: No clubbing, Other (right humerus fx, in sling) Integumentary: No rashes Neurological: Normal speech, Abnormal strength Lymphatics: No axilla or inguinal lymphadenopathy External genitalia: Deferred Rectal: Deferred Assessment And Plan - Plan A/P: Shoulder fracture: No surgical intervention at the moment. Consulted ortho. Sling to right arm. Continue prn tylenol, lidocaine patch Elevated BNP: BNP is 2691. Echo to r/o CHF. CXR showed moderate CHF. Will give lasix 40mg po daily, gave additional 40mg iv x 1 today () strict I/O and daily. Elevated troponin: went for [facility] 09/16/23 - needs Bypass - pt and family decline, started Imdur 09/17/23 Htn: continue home med, increase Metoprolol to 25mg BID from 12.5mg, DM II: continue accuchek, SSI, lantus 18u qhs -increased to 23u qhs () and ADA diet, nausea with increased FSBS since [facility], assumed pain medication related but problem continues. stopped Morphine yesterday, (), will stop Hydrocodone today (), zofran & SSI given Constipation: Prn miralax. HLD: statin, Cardiology requests Lipitor 40mg at HS. orders placed Hypothyroidism: Synthroid. Leukocytosis: FSBS have been elevated. Now noting increase in WBC count. Will draw blood cultures and obtain urine with reflex Code: DNR
[2023-09-18] MEDS: MELATONIN 5 MG TABLET PO PRN (20:48)
[2023-09-18] MEDS: ACETAMINOPHEN 500 MG TAB PO PRN (20:48)
[2023-09-18] MEDS: INSULIN GLARGINE 100 UNIT/ML SQ SCH (20:49)
[2023-09-19 03:44] LABS: Absolute Basophils 0.2 K/uL (0-0.5); Absolute Eosinophils 0.1 K/uL (0-0.5); Absolute Lymphocytes (CBC) 0.3 K/uL (0.7-4.9); Absolute Monocytes 1.2 K/uL (0.1-1.3); Absolute Neutrophil 11.6 K/uL (1.8-8.0); Basophils % 1.5 % (0-1.3); Eosinophils % 0.7 % (0-4.4); Hematocrit 34.4 % (36.0-45.0); Hemoglobin 11.6 g/dL (12.0-15.0); Lymphocytes % 2.6 % (15.3-44.8); MCH 31.1 pg (27.0-35.0); MCHC 33.6 g/dL (32.0-36.0); MCV 92.5 fL (80-100); Monocytes % 8.9 % (3.3-12.3); Neutrophils % 86.3 % (41.7-73.7); Platelets 768 thou/uL (152-406); RBC Red Blood Cell Count 3.71 M/uL (3.86-4.86); Red Cell Distribution Width 17.2 % (12.1-15.2)
[2023-09-19 03:59] LABS: Anion Gap 12.7 mEq/L (5.0-15.0); Magnesium 2.1 mg/dL (1.6-2.4); Potassium 3.7 mEq/L (3.5-5.1)
[2023-09-19 05:20] LABS: Anisocytosis 1+; Band Neutrophils 7 % (0-1); Blood Morphology Comment NOTED (NOT SEEN); Differential Total Cells Count 100; Eosinophils 1 % (0-3); Hypersegmented Neutrophils 1+; Lymphocytes 3 % (15-42); Monocytes 3 % (0-10); Platelet Estimate INCR; Reactive Lymphocytes 3 %; Segmented Neutrophils 82 % (40-80)
[2023-09-19] MEDS: POTASSIUM CL SA 10 MEQ TAB PO ONE (05:28)
[2023-09-19] MEDS: LIDOCAINE 5% OINT 30 GM TUBE TOP SCH (08:00)
--- NOTE | 2023-09-19 08:07 | RAD REPORT ---
EXAM DESCRIPTION: CT - Head Brain Wo Cont - 09/19/2023 7:45 am CLINICAL HISTORY: weakness Headache, drowsiness COMPARISON: No comparisons TECHNIQUE: All CT scans are performed using dose optimization technique as appropriate and may inclu de automated exposure control or mA/KV adjustment according to patient size. FINDINGS: No intracranial hemorrhage, hydrocephalus or extra-axial fluid collection.Mild generalized brain atrophy is present with mild periventricular and deep white matter chronic microvascular ische sandrita changes.No areas of brain edema or evidence of midline shift. Mild vertebral atherosclerosis. The paranasal sinuses and mastoids are clear. The calvarium is intact. IMPRESSION: No acute intracranial abnormality.
--- NOTE | 2023-09-19 08:09 | RAD REPORT ---
EXAM DESCRIPTION: CT - Abdomen Pelvis Wo Contrast - 09/19/2023 7:56 am CLINICAL HISTORY: Abdominal pain. VOMTING COMPARISON: Abdomen Pelvis W Contrast dated 09/15/2023 TECHNIQUE: CT imaging of the abdomen and pelvis was performed without contrast. Solid organ, bowel a nd vascular assessment is limited due to lack of IV and oral contrast. All CT scans are performed using dose optimization technique as appropriate and may include automated exposure control or mA/KV adjustment according to patient size. FINDINGS: The lower lung diggs are clear.Small hiatal hernia The liver contains small low-density benign cysts. The spleen is mildly prominent. The pancreas, adre nal glands and kidneys are within normal limits. No bowel obstruction, free air, free fluid or abscess. Moderate stool is retained throughout the colo n. Nonvisualized appendix. Severe degenerative changes of the lumbar spine is seen with dextroscoliosis.Left total hip arthropla sty. IMPRESSION: No acute intra-abdominal or pelvic findings. Moderate stool retained throughout the colo n. Severe degenerative change lumbar spine with dextroscoliosis. A limited non-contrast examination was performed as detailed.
[2023-09-19] MEDS: LIDOCAINE 4% PATCH TOP SCH (09:26)
[2023-09-19] MEDS: POLYETHYL GLY 3350 17 GM/DOSE PO PRN (09:59)
--- NOTE | 2023-09-19 10:25 | P.PN ---
Subjective Date of Service: 09/19/23 Chief Complaint: right shoulder/hip pain post fall in shower Subjective: Other (continued severe nausea, feeling unwell, will order stroke protocol CT to R/O posterior cva.) Review of Systems 10-point ROS is otherwise unremarkable Gastrointestinal: Nausea, Vomiting Physical Examination - Vital Signs Temperature: 97.6 F Blood Pressure: 131/74 Pulse: 89 Respirations: 18 Pulse Ox (%): 97 - Physical Exam General: Oriented x3, Mild distress HEENT: Atraumatic, Normocephalic Neck: 2+ carotid pulse no bruit Respiratory: Normal air movement Cardiovascular: Normal pulses, Regular rate/rhythm Capillary refill: <2 Seconds Gastrointestinal: Hypoactive Musculoskeletal: No clubbing Integumentary: No rashes Neurological: Normal speech Lymphatics: No axilla or inguinal lymphadenopathy External genitalia: Deferred Rectal: Deferred Assessment And Plan - Plan A/P: Shoulder fracture: No surgical intervention at the moment. Consulted ortho. Sling to right arm. Continue prn tylenol, lidocaine patch - Up with PT today 09/19/23 Elevated BNP: BNP is 2691. Echo to r/o CHF. CXR showed moderate CHF. Will give lasix 40mg po daily, strict I/O and daily. Elevated troponin: went for [facility] 09/16/23 - needs Bypass - pt and family decline, started Imdur 09/17/23 Htn: continue home med, increase Metoprolol to 25mg BID from 12.5mg, DM II: continue accuchek, SSI, lantus 18u qhs -increased to 23u qhs () and ADA diet, nausea with increased FSBS since [facility], assumed pain medication related but problem continues. stopped Morphine yesterday, (), will stop Hydrocodone today (), zofran & SSI given continued nausea 08/21/23 - CT head done and is negative for acute, CT abd/pelvis done and is negative except for moderate stool Constipation: Prn miralax. HLD: statin, Cardiology requests Lipitor 40mg at HS. orders placed Hypothyroidism: Synthroid. Leukocytosis: FSBS have been elevated. Now noting increase in WBC count 09/18/23. Will draw blood cultures and obtain urine with reflex, urine negative, blood cultures pending as of 3/28/24 Constipation: Lactulose 20gm po x 1 Code: DNR Discharge Plan: Other (in patient rehab tomorrow) - Code Status/Comfort Care Code Status Assessed: Yes Code Status: Do Not Attempt Resuscitat
[2023-09-19] MEDS: LACTULOSE 20 GM/30 ML UCUP PO ONE (11:53)
--- NOTE | 2023-09-19 11:55 | P.PN ---
Subjective Date of Service: 09/19/23 Chief Complaint: right shoulder/hip pain post fall in shower Subjective: No new changes Review of Systems 10-point ROS is otherwise unremarkable Physical Examination - Vital Signs Temperature: 97.6 F Blood Pressure: 131/74 Pulse: 89 Respirations: 18 Pulse Ox (%): 97 - Physical Exam General: Alert, Oriented x3 HEENT: Atraumatic Neck: Supple Respiratory: Clear to auscultation bilaterally Cardiovascular: No edema, Normal S1 S2 Gastrointestinal: Normal bowel sounds Assessment And Plan - Current Problems (Diagnosis) (1) NSTEMI (non-ST elevated myocardial infarction) Current Visit: Yes Status: Acute Plan: Patient had a coronary angiogram that shown significant mid LAD complex disease, failed intervention, plan for medical management. continue ASA 81 mg daily continue Plavix 75 mg daily continue Imdur 30 mg daily. (2) HTN (hypertension) Current Visit: Yes Status: Acute Plan: Continue Vlasartan, Lopressor. Imdur 30 mg daily (3) HLD (hyperlipidemia) Current Visit: Yes Status: Acute Plan: Lipitor 40 mg daily.
--- NOTE | 2023-09-19 15:45 | P.DS ---
Admission Date: 09/15/23 Discharge Date: 09/20/23 Disposition: TRANSFER TO INPATIENT REHAB Discharge Condition: FAIR Reason for Admission: right shoulder/hip pain post fall in shower Brief History of Present Illness: 88-year-old female with a past medical history of hypertension, hyperlipidemia, hypothyroidism, diabetes, presented to the emergency room for fall, right hip pain, right humerus nondisplaced fracture, intractable pain. She reported falling 2 days prior, being seen in the emergency room. She reports falling in the shower. She reports ambulating with a walker as baseline. She reported mild chest pressure, nonradiating, shortness of breath with exertion. She denied any syncope, dizziness, edema, fever, nausea vomiting diarrhea. She lives at [facility] assisted living with spouse. Images done showed nondisplaced humerus fracture. Blood work showed elevated troponin. EKG showed 63 beats/min. Rhythm is regular. Nonspecific ST-T changes. Patient was hospitalized for further management. Hospital Course: Patient was admitted to the medical floor and the following medical problems addressed: Shoulder fracture No surgical intervention per Ortho. Sling to right arm. Analgesics as needed Acute on chronic diastolic heart failure Patient treated with Lasix. Now appears compensated for CHF. NSTEMI Status post [facility] 09/16/23. She needs Bypass but pt and family declined. Medical treatment with aspirin, Plavix, beta-nitish, Lipitor and Imdur Hypertension Continued home meds. Metoprolol increased from 12.5 mg to to 25mg BID. DM II: Managed with accuchek, SSI. Lantus insulin titrated 23u qhs () and ADA diet. Functional constipation Associated with nausea CT abd/pelvis done showed no acute disease but demonstrated moderate stool. Constipation treated with MiraLAX and senna and mag citrate. Hyperlipidemia Pravastatin changed to Lipitor 40 mg daily per cardiology recommendation Hypothyroidism Continued home dose Synthroid. Vital Signs/Physical Exam: Temp Pulse Resp BP Pulse Ox 97.6 F 89 18 131/74 97 09/19/23 12:43 09/19/23 12:43 09/19/23 12:43 09/19/23 12:43 09/19/23 12:43 General: Alert, In no apparent distress HEENT: Mucous membr. moist/pink Neck: Supple, JVD not distended Respiratory: Clear to auscultation bilaterally, Normal air movement Cardiovascular: No edema, Regular rate/rhythm, Normal S1 S2 Gastrointestinal: Normal bowel sounds, Soft and benign, Non-distended Musculoskeletal: No swelling Integumentary: No rashes Neurological: Normal strength at 5/5 x4 extr Laboratory Data at Discharge: WBC 13.40 thou/uL (4.3-10.9) H 09/19/23 03:23 Hgb 11.6 g/dL (12.0-15.0) L 09/19/23 03:23 Hct 34.4 % (36.0-45.0) L 09/19/23 03:23 Plt Count 768 thou/uL (152-406) H 09/19/23 03:23 PT 13.3 SECONDS (9.5-12.5) H 09/15/23 11:30 INR 1.22 09/15/23 11:30 Sodium 133 mEq/L (136-145) L 09/19/23 03:23 Potassium 3.7 mEq/L (3.5-5.1) 09/19/23 03:23 BUN 39 mg/dL (7-18) H 09/19/23 03:23 Creatinine 1.03 mg/dL (0.55-1.02) H 09/19/23 03:23 Glucose 192 mg/dL (74-106) H 09/19/23 03:23 Magnesium 2.1 mg/dL (1.6-2.4) 09/19/23 03:23 Total Bilirubin 0.9 mg/dL (0.2-1.0) 09/15/23 11:30 AST 10 U/L (15-37) L 09/15/23 11:30 ALT 13 U/L (13-56) 09/15/23 11:30 Alkaline Phosphatase 75 U/L (45-117) 09/15/23 11:30 Triglycerides 46 mg/dL (<150) 09/16/23 03:29 Cholesterol 165 mg/dL (<200) 09/16/23 03:29 HDL Cholesterol 68 mg/dL (40-60) H 09/16/23 03:29 Cholesterol/HDL Ratio 2.43 09/16/23 03:29 Lipase 11 U/L (13-75) L 09/15/23 11:30 Home Medications: ALPRAZolam [Xanax*] 0.25 mg PO BID 09/15/23 Acetaminophen 500 mg PO Q6HR PRN 09/15/23 Aspirin 81 mg PO EVERY 3RD DAY 09/15/23 Biotin 1,000 mcg PO EVERY 3RD DAY 09/15/23 Buspirone HCl 10 mg PO BID 09/15/23 Ferrous Sulfate [Ferrous Sulfate*] 325 mg PO BID 09/15/23 Gabapentin 300 mg PO DAILY 09/15/23 Hydroxyurea 500 mg PO DAILY 09/15/23 Levothyroxine [Synthroid*] 75 mcg PO [id number] 09/15/23 Mag Hydroxide 8% [Milk Of Magnesia*] 15 ml PO PRN PRN 09/15/23 Metoprolol Tartrate 12.5 mg PO BID 09/15/23 Olmesartan Medoxomil 40 mg PO BID 09/15/23 Zinc Sulfate [Zinc Sulfate*] 220 mg PO DAILY 09/15/23 Atorvastatin Calcium [Lipitor] 40 mg PO BEDTIME tab 09/19/23 Clopidogrel Bisulfate [Plavix*] 75 mg PO DAILY 09/19/23 Furosemide [Lasix*] 40 mg PO DAILY tab 09/19/23 Insulin Glargine,Hum.rec.anlog [Semglee] 23 unit SQ BEDTIME ml 09/19/23 Insulin Lispro [Humalog*] See Protocol SQ ACHS ml 09/19/23 Isosorbide Mononitrate [Isosorbide Mononitrate ER] 30 mg PO DAILY #30 tab 09/19/23 Lidocaine 4% Patch [Lidoderm 5% Patch*] 1 patch TOP DAILY pat 09/19/23 Melatonin 10 mg PO BEDTIME PRN PRN 09/19/23 Polyethyl Gly 3350 [Glycolax*] 17 gm PO DAILY PRN udbot 09/19/23 Senosides [Senokot*] 8.6 mg PO BEDTIME tab 09/19/23 New Medications: Isosorbide Mononitrate [Isosorbide Mononitrate ER] 30 mg PO DAILY #30 tab Diet: AHA Activity: Fall precautions Followup: Abdiaziz Roberts MD [ACTIVE - CAN ADMIT] - (Follow-up with Dr. Moran within 2 to 4 weeks.) Elvis Karimi MD [Primary Care Provider] - (Within 2 to 4-weeks) Time spent managing pt's care (in minutes): 35
[2023-09-19] MEDS: MAGNESIUM CITRATE 300 ML BOT PO ONE (15:53)
[2023-09-20 04:45] LABS: Anion Gap 9.6 mEq/L (5.0-15.0); Potassium 3.6 mEq/L (3.5-5.1)
[2023-09-20 08:43] VITALS: BP 172/74; TEMP 97
[2023-09-20] MEDS ORDERED: NA CHLORIDE 0.9% 250 ML IV PRN (09:09)
[2023-09-20] MEDS: POTASSIUM CL SA 10 MEQ TAB PO ONE (09:18)
[2023-09-20 10:04] VITALS: O2SAT 98
--- NOTE | 2023-09-20 11:52 | EKG ---
Test Date: 2023-09-19 Test Time: 16:46:13 Dentist/Owner: Penny TRAORE MEASUREMENT RESULTS: Intervals: Rate: 92 NE: QRSD: 88 QT: 366 QTc: 452 [place]: P: NE: QRS: -43 T: 87 INTERPRETIVE STATEMENTS: Atrial fibrillation Left axis deviation Cannot rule out Anterior infarct, age undetermined Abnormal ECG Compared to ECG 09/16/2023 01:18:14 Left-axis deviation now present Sinus bradycardia no longer present Myocardial infarct finding still present Electronically Signed On 09-20-23 11:49:12 CDT by Abdiaziz Roberts
[2023-09-20] MEDS: DICYCLOMINE HCL 10 MG CAP PO ONE (12:09)
[2023-09-20] MEDS: NA CHLORIDE 0.9% 1,000 ML IV SCH (12:09)
--- NOTE | 2023-09-20 17:43 | P.PN ---
Subjective Date of Service: 09/19/23 Chief Complaint: right shoulder/hip pain post fall in shower Patient reports constipation. Heart rate has been stable. Blood sugar readings improved. Physical Examination - Vital Signs Temperature: 97.0 F Blood Pressure: 172/74 Pulse: 86 Respirations: 17 Pulse Ox (%): 98 - Physical Exam General: Alert, In no apparent distress, Oriented x3, Other (Frail-appearing) HEENT: Mucous membr. moist/pink, Sclerae nonicteric Neck: Supple, JVD not distended Respiratory: Clear to auscultation bilaterally, Normal air movement Cardiovascular: No edema, Regular rate/rhythm, Normal S1 S2 Gastrointestinal: Normal bowel sounds, Soft and benign, Non-distended Musculoskeletal: No swelling, No tenderness Integumentary: No rashes, No cyanosis Neurological: Normal strength at 5/5 x4 extr Assessment And Plan - Plan Shoulder fracture No surgical intervention per ortho. Sling to right arm. Analgesics as needed. Continue PT. Patient has been accepted to inpatient rehab. Acute on chronic diastolic heart failure/elevated BNP: CXR showed moderate CHF. Continue Lasix NSTEMI Status post left heart catheterization, CABG recommended by pt and family decline. Patient is on medical management with metoprolol, aspirin, statins, and Imdur. Essential hypertension Continue metoprolol 25 mg twice daily DM II: continue accuchek, SSI, Semglee insulin. Titrate Semglee insulin. Functional constipation No BM for several days. Mag citrate ordered. Patient is on MiraLAX and senna. Hyperlipidemia Cardiology recommend Lipitor 40mg daily. Hypothyroidism Continue Synthroid. Leukocytosis: Blood cultures: No growth to date. No fever. Leukocytosis likely reactive. Code: DNR
== END 2023-09-20 16:30 | DRG 280 ==
LOC: ER 10:57 → ERHOLD 13:36 → 2ND 14:17 → UNDODISIN 09-20 14:57
PROVIDERS: ADMIT Hospitalist; ATTEND Internal Medicine
PROC: 4A023N7 Measurement of Cardiac Sampling and Pressure, Left Heart, Percutaneous Approach (ICD-10-PCS; principal; 2023-09-16)
PROC: B2111ZZ Fluoroscopy of Multiple Coronary Arteries using Low Osmolar Contrast (ICD-10-PCS; 2023-09-16)
DX: I11.0 Hypertensive heart disease with heart failure (principal); I21.4 Non-ST elevation (NSTEMI) myocardial infarction; I50.33 Acute on chronic diastolic (congestive) heart failure; S42.201A Unspecified fracture of upper end of right humerus, initial encounter for closed fracture; E87.1 Hypo-osmolality and hyponatremia; E03.9 Hypothyroidism, unspecified; E11.65 Type 2 diabetes mellitus with hyperglycemia; K59.04 Chronic idiopathic constipation; I16.0 Hypertensive urgency; M25.461 Effusion, right knee; E78.00 Pure hypercholesterolemia, unspecified; D72.829 Elevated white blood cell count, unspecified; Z66 Do not resuscitate; Z91.048 Other nonmedicinal substance allergy status; Z96.642 Presence of left artificial hip joint; W01.0XXA Fall on same level from slipping, tripping and stumbling without subsequent striking against object, initial encounter; Y92.091 Bathroom in other non-institutional residence as the place of occurrence of the external cause; Y93.E1 Activity, personal bathing and showering; Y99.9 Unspecified external cause status
CPT/HCPCS: 36415; 70450; 71045; 71275; 72170; 74176; 74177; 76937; 80048; 80061; 80076; 81001; 82947; 83690; 83735; 83880; 84484; 85025; 85347; 85610; 87040; 93005; 93306; 93458; 93970; 96365; 96372; 96375; 97110; 97112; 97161; 97530; 99152; 99153; 99285; C1725; C1760; C1893; G0269; J0360; J0461; J1644; J1650; J1815; J1940; J2001; J2250; J2405; J3010; J7030; J7040; Q9967

== ENCOUNTER 2023-09-19 08:25 | Inpatient (IN) | payer OTHER ==
[2023-09-20] MEDS: ONDANSETRON 4 MG (ODT) TAB PO PRN (18:00)
[2023-09-20] MEDS: FORMULATION-R RECTAL 57GM PR PRN (18:18)
[2023-09-20] MEDS: ACETAMINOPHEN 500 MG TAB PO PRN (18:18)
[2023-09-20] MEDS ORDERED: D10W 250 ML BAG IV PRN (18:48)
[2023-09-20] MEDS ORDERED: GLUCAGON 1 MG/VIAL IM PRN ×2 (18:48→19:04)
[2023-09-20 19:02] VITALS: BMI 20.7
[2023-09-20] MEDS ORDERED: D50W 25 GM/50 ML SYRINGE IV PRN (19:04)
[2023-09-20] MEDS ORDERED: POLYETHYL GLY 3350 17 GM/DOSE PO PRN (19:07)
[2023-09-20] MEDS ORDERED: MAGNESIUM HYDROXIDE 8% 30 ML PO PRN (19:19)
[2023-09-20] MEDS ORDERED: ALPRAZOLAM 0.25 MG TABLET PO SCH (20:00)
--- NOTE | 2023-09-20 20:47 | HP ---
Date of Progress Note: 09/20/2023 Time Of Service: 6:00 p.m. Chief Complaint: "I fell and broke my right arm." History Of Present Illness: Ms. Benjamin is an 88-year-old patient with hypertension, diabetes mellitus type 2, dyslipidemia, hypothyroidism, who fell while getting out of the shower at home. She impacted the right side, developed significant pain in the right arm and some pain in the right lower extremi ty. At [facility], imaging study identified a comminuted multipart fracture involving the r ight proximal humerus. The fracture was displaced superiorly and medially at the surgical neck. The fracture extended into the greater tuberosity. She was seen by Dr. Ray Tam of the orthoped ic service and he noted that she was not a good candidate for surgery given age and her possibility o f a myocardial infarction for which she has had a cardiac catheterization. He has actually been jackelyn keri for non ST-segment myocardial infarction. He noted she will have range of motion with the right arm in a sling and will have physical therapy and be seen in clinic and follow that way. She does ortiz ve a grade 2 diastolic dysfunction on echocardiogram with severely enlarged left atria and dilated ri ght atrium with thiw-yr-lhpbomit tricuspid regurgitation and severe pulmonary hypertension. The card iac catheterization showed a luminal irregularities in left anterior descending throughout. There wa s diffuse segment 50% to 60% stenosis, which did become 100% occluded with faint collaterals filling the left anterior descending. There was moderate sized luminal irregularities in left circumflex and bypass was advised. However, the patient declined to have any open surgery for cardiac bypass. Nolan romero was then put at medical level with aspirin and Plavix. She did have fall precautions and was advised for continuing with physical therapy with management of her hypertension, dyslipidemia, hypot hyroidism while inpatient. She did have episodes of elevated heart rate and blood pressure increasin g agitation and proximal weakness. As a result, she was diagnosed with CHF myopathy in addition to t he right humeral fracture and determined after physical therapy was done to be functioning significan tly below her baseline level and independence is therefore admitted for physical and occupational the rapy to the inpatient rehabilitation unit. Past Medical History: As noted. Allergies: ADHESIVE TAPE. Medications: Tylenol 500 mg every 6 hours as needed, Zofran 4 mg every 4 hours as needed, aspirin 81 mg daily, Eliquis 2.5 mg twice daily, gabapentin 300 mg daily, Lasix 40 mg daily, ferrous sulfate 32 5 mg twice daily, Lipitor 40 mg at bedtime, metoprolol 12.5 mg twice daily, melatonin 10 mg at bedtim e as needed, Synthroid 25 mcg daily, Semglee insulin 23 units at bedtime. She is on insulin sliding scale as well. Lasix again 40 mg daily, ferrous sulfate 325 mg daily, and buspirone 10 mg twice nate y. Family History: Noncontributory. Social History: The patient lives in a single-family home with son and is independent. No alcohol, tobacco, or IV drug use. Past Surgical History: Cardiac catheterization, hysterectomy, carpal tunnel surgery, and trigger fin angela surgery. Review of Systems: She has constipation and mild pain in the right upper extremity where her arm is in a sling. She has good movement in the fingers, wrist extension and elevation, finger flexion as well in the right daniel e. Otherwise, she denies any significant fevers or chills. She had some mild nausea, likely related to pain medication, constipation. No ongoing vomiting. She denies any rash, any active psychiatric issues. Current Level Of Functioning: Supervision for eating, oral hygiene. Moderate assistance for toileti ng, showering. Maximum assistance for upper body dressing, lower body dressing and donning and doffi ng footwear. Moderate assistance for rolling left and right, for sit to lying, and lying to sitting on side of bed. Moderate assistance for kdb-mj-gdsne and transferring from bed to chair to toilet. Maximal assistance, begins to ambulates. Physical Examination: Vital Signs: Blood pressure 135/63, pulse 86, respiratory rate 16, temperature 97.2, oxygen saturati on 96%. Weight 125 pounds. Height 5 feet 5 inches, BMI 20.8. General: Ms. Benjamin is resting comfortably. She is in no significant distress. She has a right arm i n a sling. HEENT: She is normocephalic, atraumatic. Sclerae anicteric. Oropharynx moist. Neck: Supple. Chest: Clear. Heart: Regular. Extremities: Show no significant edema, cyanosis. The right arm does have some range of motion. Sh e is limited by the pain and again it is in a sling. She does have sensation that is symmetric in up per and lower extremities and no other focal deficits on examination. Laboratory Studies: White blood cell count 13.4, hemoglobin 11.6, platelets 768. Sodium 133, potass ium 3.7, glucose 210, BUN 39, creatinine 1.03, calcium 8.7. Magnesium 2.1. Assessment: Ms. Concha Benjamin is admitted to the rehabilitation unit with impairment category 06, dalila rological condition. Impairment group code is 03.8, neuromuscular disorders. Etiologic Diagnosis: Congestive heart failure myopathy. Additional Comorbidities: Coronary artery disease requiring bypass surgery, but the patient has opte d not; congestive heart failure that is diastolic; constipation; debility; decreased mobility; decrea sed physical functioning; hydration; diabetes mellitus type 2; elevated troponins; hypothyroidism; dy slipidemia; hypertension; leukocytosis; nausea, non ST-segment myocardial infarction; osteopenia; rig ht humeral surgical neck fracture that is displaced. Plan: She will have physical, occupational, and if need be speech therapy for 3.5 hours, 5 of 7 days . Otherwise, she will continue Synthroid for hypothyroidism, gabapentin for the neuropathic pain and pain post fracture, ferrous sulfate for anemia. Aspirin 81 mg daily and Eliquis 2.[address] roke and DVT risk reduction. In addition, myocardial infarction risk reduction. Tylenol and tramado l as needed for pain. Insulin Semglee 23 units for diabetes mellitus. Isosorbide for rate control a long with metoprolol. Melatonin 10 mg at bedtime for insomnia Senokot for constipation, zinc sulfate 220 mg daily for improving immune function. Comorbidities That Are Impacting Rehabilitation: Right humeral fracture with nonweightbearing, but r keyana of motion of the right upper extremity will pose a challenge as she tries to mobilize and perfor m daily activities. She will be put in the bed where she exits from the bed and out on the left side to minimize any issues on the right upper extremity. Her risk of an infection is significant. She will have incentive spirometry. Blood work to follow up white blood cell count and antibiotics is ap propriate. Rehab Specific Plan: 1.Ms. Benjamin will have physical, occupational, speech therapy if need be for 3.5 hours, 5 of 7 days. She will have range of motion activity of right upper extremity, which should be kept in the sling. She will have pain management with multiple modalities including neuromodulators such as gabapentin, topical transdermal analgesics, will have as needed Tylenol and tramadol and if pain is severe, we wi ll have [place] as needed. 2.She will have physical and occupational therapy to improve her ability to transfer from bed to nevaeh ir to toilet to be able to shower. She will have physical therapy to ambulate at least 250 feet and to target modified independence, up and down 10 steps with modified independence and propel a wheelch air 250 feet with modified independence. In addition, perform cognitive functioning with independenc e. 3.Ms. Benjamin has a good understanding of the process of admission to inpatient rehabilitation facility and how she will benefit from physical, occupational, and speech therapy. If need be, additional he lp from the orthopedic service, infectious Disease service, hospitalist service, Cardiology service m ay be consulted. Given her risk of complications due to her comorbid conditions, rehabilitation alonzo ot be safely or effectively performed at a lower level facility such as [facility]. Now, she wi ll have 24 hours of a [facility] while in hospital, daily physician evaluation and management. Yeast Tender evaluation for discharge planning and durable medical equipment. Barriers To Discharge: She does have the right upper extremity fracture in the humerus, which is not treated surgically, but will heal by secondary intention that will likely take perhaps 3 or more mon ths. Therefore, will persist beyond her discharge and will need to, if she is not able to manage her activities well, go to [facility] as a potential discharge location. Length Of Stay: 13 days. Disposition: At this point will be home with Home Health and management of her pain medications as a ppropriate. Prognosis: Good. Rehab Specific Goals: 1.Become independent with upper and lower body dressing, donning and doffing footwear, toileting, an d showering. 2.Independently ambulate 250 feet with a rolling walker. 3.Independently propel a wheelchair 250 feet. 4.Independently go up and down 10 steps with bilateral handrails. 5.Independently perform cognitive functioning. The above goals were reviewed with Ms. Benjamin and she is in agreement. By signing this document, I acknowledge I have personally performed a full physical examination on Ms Jaydon Benjamin no later than 24 hours after her admission to the inpatient rehabilitation facility and determ ine that she is able to tolerate the above course of treatment at an intensive level for reasonable p eriod of time. A detailed individualized plan of care for her will be completed by hospital day 4 mary sed on the preadmission screen, history and physical, and therapy evaluations. GISSELLE/MARITZA Voice ID: [id number] Report ID: [id number]
[2023-09-20] MEDS ORDERED: INSULIN REGULAR (HUMAN) 100 UNIT/ML SQ SCH (21:00)
[2023-09-20] MEDS: INSULIN LISPRO 100 UNIT/ML SQ SCH (21:00)
[2023-09-20] MEDS: INSULIN GLARGINE 100 UNIT/ML SQ SCH (21:00)
[2023-09-20] MEDS: BUSPIRONE HCL 5 MG TABLET PO SCH (21:26)
[2023-09-20] MEDS: FERROUS SULFATE 325 MG TAB PO SCH (21:27)
[2023-09-20] MEDS: DOCUSATE NA/SENNA CONC 1 TAB PO SCH (21:27)
[2023-09-20] MEDS: VALSARTAN 160 MG TAB PO SCH (21:27)
[2023-09-20] MEDS: APIXABAN 2.5 MG TABLET PO SCH (21:28)
[2023-09-20] MEDS: METOPROLOL TAR 25 MG TAB PO SCH (21:28)
[2023-09-20] MEDS: ATORVASTATIN 40 MG TAB PO SCH (21:28)
[2023-09-20] MEDS: ALPRAZOLAM 0.25 MG TABLET PO SCH (21:38)
[2023-09-20 22:43] LABS: Specific Gravity > 1.030 (1.005-1.030); Sqamous Epithelial <5 /HPF (None Seen); Urine Bacteria 20-50 /HPF (<20); Urine Bilirubin NEGATIVE (Negative); Urine Blood 3+ (Negative); Urine Clarity Extremely Turbid (Clear); Urine Color Yellow (Yellow); Urine Culture Reflex Order NOT NEEDED; Urine Glucose 3+ (Negative); Urine Ketones 1+ (Negative); Urine Micro Reflex YN NO BILL MICROSCOPIC; Urine Mucus Slight /HPF (None Seen); Urine Nitrite NEGATIVE (Negative); Urine Protein 1+ (Negative); Urine RBC 21-50 /HPF (None Seen); Urine Urobilinogen 1+ (Normal); Urine Yeast (Budding) Occasional /HPF (None Seen); Urine pH 6.5 (5.0-7.0)
[2023-09-21] MEDS: BISACODYL 10 MG RECTAL SUPP PR PRN (00:30)
[2023-09-21] MEDS: MELATONIN 5 MG TABLET PO PRN (00:33)
[2023-09-21] MEDS: LEVOTHYROXINE SOD 0.075 MG TAB PO SCH (06:48)
[2023-09-21] MEDS: ASPIRIN EC 81 MG TAB PO SCH (07:24)
[2023-09-21] MEDS: GABAPENTIN 300 MG CAP PO SCH (07:24)
[2023-09-21] MEDS: FUROSEMIDE 40 MG TABLET PO SCH (07:24)
[2023-09-21] MEDS: ZINC SULFATE 220 MG CAP PO SCH (08:00)
--- NOTE | 2023-09-21 08:27 | RAD REPORT ---
EXAM DESCRIPTION: RAD - Abdomen 1 View (KUB) - 09/21/2023 8:10 am CLINICAL HISTORY: Abdomen pain FINDINGS: The bowel gas pattern is unremarkable. A moderate amount stool is present throughout the c olon. Moderate rotoscoliosis involves the spine. Left hip arthroplasty No significant abnormal calcification is displayed
[2023-09-21 08:49] LABS: Absolute Basophils 0.1 K/uL (0-0.5); Absolute Lymphocytes (CBC) 0.3 K/uL (0.7-4.9); Absolute Monocytes 1.3 K/uL (0.1-1.3); Absolute Neutrophil 20.9 K/uL (1.8-8.0); Basophils % 0.3 % (0-1.3); Eosinophils % 0.1 % (0-4.4); Hematocrit 37.1 % (36.0-45.0); Hemoglobin 12.2 g/dL (12.0-15.0); Lymphocytes % 1.3 % (15.3-44.8); MCH 30.4 pg (27.0-35.0); MCHC 32.8 g/dL (32.0-36.0); MCV 92.8 fL (80-100); MPV 8.1 fL (7.6-11.3); Monocytes % 5.8 % (3.3-12.3); Neutrophils % 92.5 % (41.7-73.7); Platelets 1007 thou/uL (152-406); Red Cell Distribution Width 17.4 % (12.1-15.2)
[2023-09-21 09:12] LABS: Albumin 2.9 g/dL (3.4-5.0); Anion Gap 9.7 mEq/L (5.0-15.0); Potassium 3.7 mEq/L (3.5-5.1); Prealbumin 8.9 mg/dL (20-40)
[2023-09-21 09:19] LABS: Blood Morphology Comment NOT SEEN (NOT SEEN); Differential Total Cells Count 100; Eosinophils 1 % (0-3); Hypersegmented Neutrophils PRESENT; Lymphocytes 1 % (15-42); Monocytes 11 % (0-10); Platelet Estimate INCR; Segmented Neutrophils 87 % (40-80)
[2023-09-21] MEDS: ISOSORBIDE MONO SR 30 MG TAB PO SCH (09:21)
[2023-09-21] MEDS: LIDOCAINE 4% PATCH TOP SCH (09:22)
[2023-09-21] MEDS: HYDROXYUREA 500 MG CAP PO SCH (09:22)
[2023-09-21] MEDS ORDERED: INSULIN LISPRO 100 UNIT/ML SQ SCH (11:36)
[2023-09-21] MEDS: INSULIN LISPRO 100 UNIT/ML SQ SCH (12:29)
[2023-09-21] MEDS: NA CHLORIDE 0.9% 1,000 ML IV SCH (14:15)
--- NOTE | 2023-09-21 15:13 | RAD REPORT ---
EXAM DESCRIPTION: Ethel Single View09/21/2023 3:02 pm CLINICAL HISTORY: cough COMPARISON: September 15, 2023 FINDINGS: The lungs appear clear of acute infiltrate. The heart is mildly to moderately enlarged IMPRESSION: Resolution in the pulmonary edema
[2023-09-21] MEDS: PIPER TAZO 3.375 GM in NA CHLORIDE 0.9% 100 ML IV SCH (16:09)
[2023-09-21] MEDS: INSULIN GLARGINE 100 UNIT/ML SQ SCH (20:55)
[2023-09-21] MEDS ORDERED: INSULIN GLARGINE 100 UNIT/ML SQ SCH (21:00)
[2023-09-22 06:16] LABS: Absolute Basophils 0.1 K/uL (0-0.5); Absolute Eosinophils 0.1 K/uL (0-0.5); Absolute Lymphocytes (CBC) 0.6 K/uL (0.7-4.9); Absolute Monocytes 1.1 K/uL (0.1-1.3); Absolute Neutrophil 15.9 K/uL (1.8-8.0); Basophils % 0.4 % (0-1.3); Eosinophils % 0.8 % (0-4.4); Hematocrit 30.4 % (36.0-45.0); Hemoglobin 10.3 g/dL (12.0-15.0); Lymphocytes % 3.4 % (15.3-44.8); MCH 31.2 pg (27.0-35.0); MCV 91.9 fL (80-100); MPV 8.2 fL (7.6-11.3); Monocytes % 6.2 % (3.3-12.3); Neutrophils % 89.2 % (41.7-73.7); Platelets 871 thou/uL (152-406); RBC Red Blood Cell Count 3.31 M/uL (3.86-4.86); Red Cell Distribution Width 16.9 % (12.1-15.2)
[2023-09-22 06:22] LABS: Anion Gap 9.9 mEq/L (5.0-15.0); Potassium 3.9 mEq/L (3.5-5.1)
[2023-09-22] MEDS ORDERED: NA CHLORIDE 0.9% 250 ML ONE (14:54)
[2023-09-23] MEDS: TRAZODONE 50 MG TABLET PO PRN (00:21)
[2023-09-23] MEDS ORDERED: BIOTIN 1000 MG PO SCH (17:00)
[2023-09-23] MEDS: AMOX/K CLAV 875 MG TAB PO SCH (19:30)
--- NOTE | 2023-09-23 22:00 | PN ---
Date of Progress Note: 09/23/2023 Time Of Service: 1:20 p.m. Subjective: Ms. Benjamin is sitting in a chair beside bed. Her iaekyccd-lq-few is present. She does vo ice some doubt about her ability to recover and do well. She was at times mildly tearful and seem to be somewhat depressed about her situation. She did have reassurance about how well she is doing and that she can improve and do very well and be able to go back to her assisted living where she will c ontinue therapy. She was administering her insulin via needle where she withdraw up the amount, but that will be switched over to a FlexPen style. She is receiving 23 units of Semglee insulin at night . Objective: She denies any recent fevers, chills, nausea, vomiting. Did have some abdominal pain and chest issues and actually had KUB x-ray done on the and a chest x-ray done on the . The ab dominal KUB x-ray showed unremarkable bowel gas pattern. Moderate amount of stool present throughout the colon. Moderate rotoscoliosis of the spine and left hip arthroplasty. Her chest x-ray showed r esolution of pulmonary edema. Physical Examination: Vital Signs: Blood pressure 126/64, pulse of 95, respiratory rate 16, temperature 97.6, oxygen satur ation 98%. General: Ms. Benjamin is sitting in a chair beside bed. Extremities: She does have the right arm in sling and it is doing well. She has some mild edema not ed in the right hand, which she is able to open and close and make a fist. She will have a squeeze b all to exercise the hand and the right shoulder again is restricted in a sling. Otherwise, good air movement. Mild edema noted in the lower extremities. She will have DANG hose when ambulating. No ne w or focal deficits. Laboratory Studies: White blood cell count did improve yesterday, on the it was 22.7, yesterday 17.9. Her neutrophil count improved from 92.5 to 89.2, hemoglobin did go down to 10.3 from 12.2. B lood glucose ranged from 120 to 216 and urinalysis consistent with urinary tract infection with E. co li. She is now on amoxicillin/clavulanic acid 875/125 for 7 days for her urinary tract infection. T he E. coli is edmonds sensitive. She did have blood cultures that have been negative in 24 hours x2. Progress Made With Physical, Occupational, And Speech Therapy: Today with physical therapy, she did mxnwak-vi-wdy transfers with minimum assistance, aigwg-qo-pzuxe transfers from wheelchair to bed with contact guard assistance. She ambulated 20 feet twice with a quad cane with contact guard assistanc e. She mobilized a wheelchair 75 feet with standby assistance. With occupational therapy, bathing w as maximal assistance, upper body dressing maximum assistance, lower body dressing maximal assistance . Grooming required setup assistance. She began to work with speech therapy with long-term goals of improving short-term memory, executive functioning skills with moderate assistance to minimum assist ance in preparing for returning to home under assisted living center with her spouse. Ms. Benjamin is making fair progress so far with physical, occupational, and speech therapy. She has uri nary tract infection, is now on Augmentin, clavulanic acid. She does have features of depression and anxiety. Plan: 1.She will continue physical, occupational, and speech therapy. 2.Eliquis 2.5 mg twice daily for DVT prophylaxis. 3.Continue amoxicillin/clavulanate 875 mg twice daily from 09/22 to 09/29, 15 doses ordered. Contin ue Tylenol as needed for pain and that is 500 mg every 6 hours as needed, Xanax for anxiety. Eliquis again 2.5 mg twice a day for DVT prophylaxis, aspirin 81 mg daily for stroke risk reduction, Lipitor 40 mg at bedtime for dyslipidemia. Continue BuSpar for anxiety, ferrous sulfate 325 mg daily for ir on deficiency anemia, Lasix 40 mg daily for her diuresis and fluid management, gabapentin 300 mg nate y for neuropathic pain, hydroxyurea twice daily. Continue Semglee insulin 23 units at bedtime. She did have levothyroxine 0.075 mg daily, Imdur 30 mg daily, melatonin 10 mg at bedtime. Review of her blood sugars did indicate morning blood sugars were low initially and then after breakfast increased over 200. She will have metformin added 250 mg in the morning along with 70 at night, melatonin 10 m g at night for insomnia, Senokot-S 2 at bedtime for constipation, tramadol 50 mg every 6 hours as nee ded for pain, and Diovan 160 mg twice daily for hypertension management. Assessment: Ms. Benjamin is an 88-year-old patient in the rehabilitation unit with right humerus fractur e, debility, CHF myopathy, hypothyroidism, dyslipidemia, urinary tract infection, decreased physical functioning, decreased mobility, leukocytosis, ST-segment myocardial infarction, osteopenia. Plan: 1.She will have the right arm kept in sling. Use right hand and squeeze objects to reduce edema. 2.Continue hypothyroidism treated with Synthroid. Continue gabapentin for neuropathic pain. Contin ue with physical, occupational, and speech therapy for 3.5 hours, 5 of 7 days. Continue with DVT pro phylaxis. Continue Semglee insulin. Continue her isosorbide for rate and blood pressure control. C ontinue melatonin for insomnia and Senokot-S for iron deficiency anemia. Comorbidities That Are Continuing To Impact Rehabilitation: As noted, she is nonweightbearing in the right upper extremity humeral fracture and will be unable to inject insulin as she did before and a FlexPen will be ordered with the Semglee insulin given at night along with metformin 250 mg daily. LB/MODL Voice ID: [id number] Report ID: [id number]
[2023-09-24 04:37] LABS: Absolute Basophils 0.1 K/uL (0-0.5); Absolute Eosinophils 0.4 K/uL (0-0.5); Absolute Lymphocytes (CBC) 0.7 K/uL (0.7-4.9); Absolute Neutrophil 9.3 K/uL (1.8-8.0); Basophils % 0.6 % (0-1.3); Eosinophils % 3.3 % (0-4.4); Hematocrit 30.4 % (36.0-45.0); Lymphocytes % 6.4 % (15.3-44.8); MCH 30.4 pg (27.0-35.0); MCHC 32.9 g/dL (32.0-36.0); MCV 92.4 fL (80-100); MPV 8.3 fL (7.6-11.3); Monocytes % 8.3 % (3.3-12.3); Neutrophils % 81.4 % (41.7-73.7); Nucleated Red Blood Cells % 0.1 % (0-0); Platelets 1049 thou/uL (152-406); RBC Red Blood Cell Count 3.29 M/uL (3.86-4.86)
[2023-09-24 04:53] LABS: Albumin 2.5 g/dL (3.4-5.0); Anion Gap 6.1 mEq/L (5.0-15.0); Magnesium 2.3 mg/dL (1.6-2.4); Potassium 3.1 mEq/L (3.5-5.1)
[2023-09-24] MEDS ORDERED: METFORMIN ER 500 MG TAB PO SCH (08:00)
[2023-09-24] MEDS: POTASSIUM 25 MEQ EFFERV TAB PO ONE (08:11)
[2023-09-24] MEDS: METFORMIN HCL 500 MG TAB PO SCH (08:13)
[2023-09-24] MEDS: POTASSIUM CL SA 10 MEQ TAB PO SCH (10:09)
[2023-09-24] MEDS: VALSARTAN 160 MG TAB PO SCH (12:00)
[2023-09-24] MEDS: INSULIN GLARGINE 100 UNIT/ML SQ SCH (20:15)
[2023-09-24] MEDS: INSULIN LISPRO 100 UNIT/ML SQ SCH (20:16)
[2023-09-24] MEDS: GLUCERNA SHAKE 237 ML CAN PO SCH (20:18)
--- NOTE | 2023-09-24 21:56 | PN ---
Date of Progress Note: 09/24/2023 Time Of Service: 1:30 p.m. Subjective: Ms. Benjamin is getting ready to ambulate. She is walking on the road with physical therapi st and tow with gait belt in place. She is using a rolling walker. Her mood is slightly improved to day compared to yesterday, but she still voices features of depression and worried about how she will do as she is to be discharged. Objective: No fevers, chills, nausea, vomiting. No myalgias, arthralgias. Still very worried with going home. Has some anxiety. Physical Examination: Vital Signs: Blood pressure 161/66, pulse 80, respiratory rate 16, temperature 97.4, oxygen saturati on 99%. General: Ms. Benjamin has been standing and beginning to ambulate around the unit. HEENT: She is normocephalic, atraumatic. Sclerae anicteric. Oropharynx pink, moist. Neck: Supple. Mild decreased breath sounds. Abdomen: Soft. Extremities: No significant edema. She was worried about some swelling in the legs, but there is no edema noted in the feet and legs. Laboratory Studies: White blood cell count improved to 11.5, went down from 22.7 on the 30th, neutro phils decreased to 81.4, hemoglobin is steady at 10. Sodium 136, potassium 3.1, she did have potassi um replacement added, chloride 104, carbon dioxide 29, BUN 27, glucose ranged from 93 to 239. She di d have an adjustment in her insulin at nighttime and she had the metformin added in the morning. Her calcium is 8.0, magnesium 2.3, prealbumin 11, and albumin 2.5 and other cultures did grow E. coli pa nsensitive. Medications: As noted. Due to blood sugars being low in the morning and elevated after her breakfas t, her nighttime Semglee insulin was decreased from 23 units to 20 units and she has metformin 250 mg in the morning. Otherwise, she has potassium replacement 10 mEq twice daily for hypokalemia. She c ontinues valsartan for hypertension, trazodone for insomnia, Ultram for pain, Senokot-S for constipat ion, Lopressor for heart rate control, melatonin for insomnia, Synthroid 0.075 mg daily for hypothyro idism. She has continued hydroxyurea, gabapentin, Lasix, ferrous sulfate for depression. She has Bu Spar and anxiety. Xanax as needed. The antibiotic Augmentin is continued from 09/23/2023 to 024. Progress Made With Physical, Occupational, And Speech Therapy: Today with physical therapy, she did msnrgj-uc-rxq transfer with standby assistance and verbal cues, xkl-xt-dzjxg transfer with minimum as sistance to contact guard assistance. She ambulated with a quad cane 3 x 35 feet and 2 x 25 feet wit h contact guard assistance. She mobilized a wheelchair 75 feet with standby assistance. With occupa tional therapy, minimum assistance with grx-uy-mcaid, contact guard assistance with bmpfr-wb-sywee tr britany. With speech, she has working memory for 3 units of information with 80% accuracy. She recal led 3 of 3 unrelated words after 5 minutes. Ms. Benjamin is making fair progress overall with physical, occupational, and speech therapy. She is agatha ewhat limited by anxiety and fear of falling, but is actually doing well. Assessment: Ms. Benjamin is an 88-year-old patient, admitted to the rehabilitation unit with CHF myopath y, from which she is recovering well. She is anxious, but is again making great progress with her th erapy. She has multiple comorbidities including hypothyroidism, dyslipidemia, urinary tract infectio n, decreased mobility, decreased physical functioning, osteopenia. Plan: Continue with physical, occupational, and speech therapy. She is able to maintain the right a rm in a sling and is doing well and not in significant pain at that area. She is again working ave r with therapy. Comorbidities That Are Impacting Rehabilitation: The right upper extremity which is in a sling is no nweightbearing. She is doing well with that. Her blood sugars are fluctuating. Adjustments were made to her insulin and oral hypoglyc emic regimen. LB/MODL Voice ID: [id number] Report ID: [id number]
[2023-09-25 04:14] LABS: Anion Gap 7.7 mEq/L (5.0-15.0); Potassium 3.7 mEq/L (3.5-5.1)
[2023-09-25] MEDS: LOPERAMIDE HCL 2 MG CAPSULE PO PRN (09:15)
--- NOTE | 2023-09-25 13:16 | P.RH.PN ---
Estimated Length of Stay: 11 Expected Discharge Date: 10/01/23 Discharge Disposition Plan: Home Family Support: Yes [facility] Goal: Mobility, Transfers, Self Care Vital Signs: Last Vital Signs Temp 96.8 F 09/25/23 08:00 Pulse 85 09/25/23 08:00 Resp 17 09/25/23 08:00 BP 160/72 H 09/25/23 08:00 Pulse Ox 97 09/25/23 08:00 Laboratory: Laboratory Last Values WBC 11.50 thou/uL (4.3-10.9) H 09/24/23 03:41 RBC 3.29 M/uL (3.86-4.86) L 09/24/23 03:41 Hgb 10.0 g/dL (12.0-15.0) L 09/24/23 03:41 Hct 30.4 % (36.0-45.0) L 09/24/23 03:41 MCV 92.4 fL (80-100) 09/24/23 03:41 MCH 30.4 pg (27.0-35.0) 09/24/23 03:41 MCHC 32.9 g/dL (32.0-36.0) 09/24/23 03:41 RDW 17.0 % (12.1-15.2) H 09/24/23 03:41 Plt Count 1049 thou/uL (152-406) H 09/24/23 03:41 MPV 8.3 fL (7.6-11.3) 09/24/23 03:41 Neutrophils % 81.4 % (41.7-73.7) H 09/24/23 03:41 Lymphocytes % 6.4 % (15.3-44.8) L 09/24/23 03:41 Monocytes % 8.3 % (3.3-12.3) 09/24/23 03:41 Eosinophils % 3.3 % (0-4.4) 09/24/23 03:41 Basophils % 0.6 % (0-1.3) 09/24/23 03:41 Absolute Neutrophils 9.3 K/uL (1.8-8.0) H 09/24/23 03:41 Segmented Neutrophils 87 % (40-80) H 09/21/23 08:35 Absolute Lymphocytes 0.7 K/uL (0.7-4.9) 09/24/23 03:41 Lymphocytes 1 % (15-42) L 09/21/23 08:35 Monocytes 11 % (0-10) H 09/21/23 08:35 Absolute Monocytes 1.0 K/uL (0.1-1.3) 09/24/23 03:41 Eosinophils 1 % (0-3) 09/21/23 08:35 Absolute Eosinophils 0.4 K/uL (0-0.5) 09/24/23 03:41 Absolute Basophils 0.1 K/uL (0-0.5) 09/24/23 03:41 Hypersegmented Neuts Present 09/21/23 08:35 Platelet Estimate Incr 09/21/23 08:35 Morphology Comment Not seen (NOT SEEN) 09/21/23 08:35 Sodium 136 mEq/L (136-145) 09/25/23 03:39 Potassium 3.7 mEq/L (3.5-5.1) D 09/25/23 03:39 Chloride 104 mEq/L (98-107) 09/25/23 03:39 Carbon Dioxide 28 mEq/L (21-32) 09/25/23 03:39 Anion Gap 7.7 mEq/L (5.0-15.0) 09/25/23 03:39 BUN 19 mg/dL (7-18) H 09/25/23 03:39 Creatinine 0.92 mg/dL (0.55-1.02) 09/25/23 03:39 Est GFR (CKD-EPI) 60 ml/min (=/>90) L 09/25/23 03:39 Glucose 197 mg/dL (74-106) H 09/25/23 03:39 POC Glucose 295 mg/dL (65-120) H 09/25/23 11:07 Lactic Acid 0.8 mmol/L (0.4-2.0) 09/22/23 05:20 Calcium 8.0 mg/dL (8.5-10.1) L 09/25/23 03:39 Magnesium 2.3 mg/dL (1.6-2.4) 09/24/23 03:41 Lactate Dehydrogenase 385 U/L (84-246) H 09/21/23 15:03 Albumin 2.5 g/dL (3.4-5.0) L 09/24/23 03:41 Prealbumin 11.0 mg/dL (20-40) L 09/24/23 03:41 Procalcitonin 0.43 ng/mL (<0.050) H 09/22/23 05:20 Urine Color Yellow (Yellow) 09/20/23 21:53 Urine Clarity Extremely turbid (Clear) H 09/20/23 21:53 Urine pH 6.5 (5.0-7.0) 09/20/23 21:53 Ur Specific [place] > 1.030 (1.005-1.030) H 09/20/23 21:53 Glucose (UA)(Auto) 3+ (Negative) H 09/20/23 21:53 Urine Ketones 1+ (Negative) H 09/20/23 21:53 Urine Blood 3+ (Negative) H 09/20/23 21:53 Urine Nitrite Negative (Negative) 09/20/23 21:53 Urine Bilirubin Negative (Negative) 09/20/23 21:53 Urine Urobilinogen 1+ (Normal) H 09/20/23 21:53 Ur Leukocyte Esterase 500 Toney/uL (Negative) H 09/20/23 21:53 Urine RBC 21-50 /HPF (None Seen) H 09/20/23 21:53 Urine WBC 5-10 /HPF (<5) 09/20/23 21:53 Ur Squamous Epith Cells <5 /HPF (None Seen) 09/20/23 21:53 U Non-Squamous Epi Cells <5 /HPF (None Seen) 09/20/23 21:53 Amorphous Crystals Trace /HPF (None Seen) 09/20/23 21:53 Urine Bacteria 20-50 /HPF (<20) H 09/20/23 21:53 Urine Mucus Slight /HPF (None Seen) 09/20/23 21:53 Urine Yeast (Budding) Occasional /HPF (None Seen) H 09/20/23 21:53 Urine Culture Reflexed Not needed 09/20/23 21:53 Urine Total Protein 1+ (Negative) H 09/20/23 21:53 Weight: 125 lb Wound Present: No Closed Surgical Incision Present: No Negative Pressure Wound Therapy Present: No Physician Update: Labs reviewed and are stable with improving WBC. SLUMS 19, memory loss and executive function issues. Left quad cane 25 to 35 feet. More pain in the right shoulder. X-ray ordered. Summary: Patient's care plan and extermination inspector goals have been reviewed and revised as necessary. Please see the Rehabilitation Signature page for all necessary signatures.
[2023-09-26 04:10] LABS: Absolute Basophils 0.1 K/uL (0-0.5); Absolute Eosinophils 0.3 K/uL (0-0.5); Absolute Lymphocytes (CBC) 0.7 K/uL (0.7-4.9); Absolute Monocytes 1.1 K/uL (0.1-1.3); Absolute Neutrophil 10.5 K/uL (1.8-8.0); Basophils % 0.8 % (0-1.3); Hematocrit 28.6 % (36.0-45.0); Hemoglobin 9.7 g/dL (12.0-15.0); Lymphocytes % 5.4 % (15.3-44.8); MCH 31.4 pg (27.0-35.0); MCHC 33.8 g/dL (32.0-36.0); MCV 92.7 fL (80-100); MPV 8.4 fL (7.6-11.3); Monocytes % 8.8 % (3.3-12.3); Platelets 1066 thou/uL (152-406); RBC Red Blood Cell Count 3.08 M/uL (3.86-4.86); Red Cell Distribution Width 17.2 % (12.1-15.2)
[2023-09-26 05:07] LABS: Band Neutrophils 9 % (0-1); Differential Total Cells Count 100; Eosinophils 3 % (0-3); Lymphocytes 6 % (15-42); Monocytes 3 % (0-10); Segmented Neutrophils 78 % (40-80)
[2023-09-26 05:08] LABS: Anisocytosis 1+; Blood Morphology Comment NOTED (NOT SEEN); Platelet Estimate ADEQ; Polychromasia SLIGHT
[2023-09-26 08:40] LABS: Anion Gap 6.6 mEq/L (5.0-15.0); Magnesium 2.1 mg/dL (1.6-2.4); Potassium 3.6 mEq/L (3.5-5.1); Prealbumin 12.9 mg/dL (20-40)
[2023-09-26] MEDS: TRAMADOL HCL 50 MG TAB PO PRN (10:25)
--- NOTE | 2023-09-26 13:11 | RAD REPORT ---
EXAM DESCRIPTION: Shoulder Right 2 View - 09/26/2023 11:47 am CLINICAL HISTORY: to compare with previous xray COMPARISON: Chest Single View dated 09/21/2023; Chest Single View dated 09/15/2023; Humerus Right date d 09/12/2023 TECHNIQUE: Internal and external rotation views of the right shoulder were obtained. FINDINGS: Stable alignment of impacted angulated surgical neck right humerus fracture. Some osseous remodeling along the fracture margins. Mild subluxation along the glenohumeral articulation. AC joint is normal in appearance. No acute or suspicious findings. IMPRESSION: Stable alignment of known right surgical neck humerus fracture as above.
[2023-09-27] MEDS: ALPRAZOLAM 0.25 MG TABLET PO PRN (00:36)
--- NOTE | 2023-09-27 15:53 | RAD REPORT ---
EXAM DESCRIPTION: US - Extremity Venous Uni Ltd - 09/27/2023 3:01 pm CLINICAL HISTORY: Pain COMPARISON: None. TECHNIQUE: Real-time sonographic evaluation of the right lower extremity deep venous system was perf ormed. FINDINGS: Normal compressibility, flow augmentation, phasic flow and spontaneous flow is identified in the right lower extremity deep venous system. No intraluminal filling defects seen. IMPRESSION: No DVT in the right lower extremity.
--- NOTE | 2023-09-27 19:23 | P.PN ---
Subjective Date of Service: 09/27/23 Patient is complaining of problems in his right leg. She describes pain radiating from the lateral hip area all the way to her foot. Physical Examination - Vital Signs Temperature: 97.6 F Blood Pressure: 165/74 Pulse: 92 Respirations: 16 Pulse Ox (%): 95 - Studies Microbiology Data (last 24 hrs): 09/21/23 15:03 Blood - Blood Aerobic Blood Culture - Final No growth in 5 days. 09/21/23 15:03 Blood - Blood Anaerobic Blood Culture - Final No growth in 5 days. Assessment And Plan - Plan Physical examination General: Alert and oriented x3, NAD, Neck: Supple, no elevated JVD Heart: Heart sounds 1 and 2 normal, regular rhythm, normal rate, no pedal edema Lungs: Clear to auscultation bilaterally, adequate breath sounds bilaterally, no rhonchi or crackles. Abdomen: Soft, nondistended, nontender, normal bowel sounds. Extremities: Right calf tenderness, no deformity Skin: Normal skin turgor, no rash, no nodules or ulcers. Neuro: No focal motor deficit. Normal speech. Psychiatry: Normal mood, no agitation. Progress Made With Physical, Occupational, And Speech Therapy: Today with physical therapy, Patient completed bed mobility including turning in bed, supine<>sit with CGA/SBA. Patient completed multiple sit<>stand transfers and stand pivot transfers with CGA. Patient completed a simulated car transfer with CGA to Min A. Patient completed gait training for 130' and 150' with CGA using NBQC, c/o RLE pain, PT notified nursing and MD of the same. Patient completed wheelchair mobility and propelled her wheelchair with LUE and BLE for 150' independently and additional 120'. Ms. Benjamin is making fair progress overall with physical, occupational, and speech therapy. She is somewhat limited by anxiety and fear of falling and pain in her right leg. Assessment: Ms. 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 She is anxious. Comorbidities: Hypothyroidism Dyslipidemia urinary tract infection osteopenia. Diabetes mellitus type 2 Plan: Continue with physical, occupational, and speech therapy. She is able to maintain the right arm in a sling and is doing well and not in significant pain at that area. She is again working better with therapy. Lower extremity venous Doppler done was negative for DVT. Analgesics as needed, gabapentin as needed for neuropathic pain. Continue current insulin regimen for diabetes management. Comorbidities That Are Impacting Rehabilitation: The right upper extremity which is in a sling is nonweightbearing. She is progressing ambulating with a quad using her LUE.
--- NOTE | 2023-09-27 19:39 | P.PN ---
Subjective Date of Service: 09/26/23 Patient reports intermittent pain in his right leg. Physical Examination - Studies Microbiology Data (last 24 hrs): 09/21/23 15:03 Blood - Blood Aerobic Blood Culture - Final No growth in 5 days. 09/21/23 15:03 Blood - Blood Anaerobic Blood Culture - Final No growth in 5 days. Assessment And Plan - Plan Physical examination General: Alert and oriented x3, NAD, Neck: Supple, no elevated JVD Heart: Heart sounds 1 and 2 normal, regular rhythm, normal rate, no pedal edema Lungs: Clear to auscultation bilaterally, adequate breath sounds bilaterally, no rhonchi or crackles. Abdomen: Soft, nondistended, nontender, normal bowel sounds. Extremities: Right calf tenderness, no deformity Skin: Normal skin turgor, no rash, no nodules or ulcers. Neuro: No focal motor deficit. Normal speech. Psychiatry: Normal mood, no agitation. Progress Made With Physical, Occupational, And Speech Therapy: Today with physical therapy, Patient performed Supine<->Sit transfer Independently this morning. Patient performed multiple Sit<->Stand transfers with CGA today. Patient needs devreased VC's for proper hand placement today. Patient performed Stand-Pivot transfer from W/C<->Bed with CGA today. Patient performed Toilet transfer using grab bars with CGA today. Patient participated in gait using a QC 1 X 125', 1 X 130', and 1 X 140' with CGA today. Ms. Benjamin is making fair progress overall with physical, occupational, and speech therapy. Assessment: Ms. 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 She is anxious. Comorbidities: Hypothyroidism Dyslipidemia urinary tract infection osteopenia. Diabetes mellitus type 2 Plan: Continue with physical, occupational, and speech therapy. She is able to maintain the right arm in a sling and is doing well and not in significant pain at that area. She is again working better with therapy. Analgesics as needed, gabapentin as needed for neuropathic pain. Continue current insulin regimen for diabetes management. Comorbidities That Are Impacting Rehabilitation: The right upper extremity which is in a sling is nonweightbearing. She is progressing gradually with therapy.
[2023-09-27] MEDS: DOCUSATE NA/SENNA CONC 1 TAB PO PRN (20:22)
[2023-09-27] MEDS: [UNRECOGNIZED DRUG - OTHER] SQ SCH (20:31)
[2023-09-28] MEDS: LIDOCAINE 4% PATCH TOP SCH (09:13)
--- NOTE | 2023-09-30 18:13 | P.PN ---
Subjective Date of Service: 09/30/23 Patient states she feels much better today. She feels did much better with therapy. Blood sugar readings are much elevated today. Physical Examination - Vital Signs Temperature: 97.8 F Blood Pressure: 139/62 Pulse: 77 Respirations: 17 Pulse Ox (%): 94 Assessment And Plan - Plan Physical examination General: Alert and oriented x3, NAD, Neck: Supple, no elevated JVD Heart: Heart sounds 1 and 2 normal, regular rhythm, normal rate, no pedal edema Lungs: Clear to auscultation bilaterally, adequate breath sounds bilaterally, no rhonchi or crackles. Abdomen: Soft, nondistended, nontender, normal bowel sounds. Extremities: Right calf tenderness, no deformity Skin: Normal skin turgor, no rash, no nodules or ulcers. Neuro: No focal motor deficit. Normal speech. Psychiatry: Normal mood, no agitation. Progress Made With Physical, Occupational, And Speech Therapy: Today with physical therapy, patient performed Supine<->Sit transfer independently this morning. Patient performed multiple Sit to Stand transfers with SBA. Patient performed Stand-Pivot transfer from W/C to Bed with CGA today. Patient participated in gait using a QC up to 375' with CGA today weakness is significantly improvement compared to previous PT session. Patient had decreased anxiety about falls today. Patient had improved stride length. She was able to ascend and descend 6 steps using both hand rails with CGA today. Ms. Benjamin is making good progress overall with physical, occupational, and speech therapy. Assessment: Ms. 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 She is anxious. Comorbidities: Hypothyroidism Dyslipidemia urinary tract infection osteopenia. Diabetes mellitus type 2 Plan: Continue with physical, occupational, and speech therapy. She is able to maintain the right arm in a sling and is doing well and not in significant pain at that area. She is again working better with therapy. Analgesics as needed, gabapentin as needed for neuropathic pain. Continue current insulin regimen-insulin sliding scale and basal insulin for diabetes management. Comorbidities That Are Impacting Rehabilitation: The right upper extremity which is in a sling is nonweightbearing. She is making good progress with therapy.
[2023-09-30] MEDS: [UNRECOGNIZED DRUG - OTHER] SQ SCH (20:10)
[2023-09-30] MEDS: INSULIN GLARGINE 100 UNIT/ML SQ SCH (20:11)
[2023-10-01 07:47] LABS: Absolute Basophils 0.1 K/uL (0-0.5); Absolute Eosinophils 0.3 K/uL (0-0.5); Absolute Lymphocytes (CBC) 0.8 K/uL (0.7-4.9); Absolute Monocytes 0.6 K/uL (0.1-1.3); Absolute Neutrophil 9.2 K/uL (1.8-8.0); Basophils % 1.2 % (0-1.3); Eosinophils % 2.5 % (0-4.4); Hematocrit 30.4 % (36.0-45.0); Hemoglobin 10.4 g/dL (12.0-15.0); Lymphocytes % 7.1 % (15.3-44.8); MCH 31.7 pg (27.0-35.0); MCHC 34.3 g/dL (32.0-36.0); MCV 92.4 fL (80-100); MPV 8.2 fL (7.6-11.3); Monocytes % 5.6 % (3.3-12.3); Neutrophils % 83.6 % (41.7-73.7); Platelets 1086 thou/uL (152-406); RBC Red Blood Cell Count 3.29 M/uL (3.86-4.86); Red Cell Distribution Width 18.1 % (12.1-15.2)
[2023-10-01] MEDS: INSULIN GLARGINE 100 UNIT/ML SQ SCH (20:34)
--- NOTE | 2023-10-02 00:03 | PN ---
Date of Progress Note: 10/01/2023 Time Of Service: 1:25 p.m. Subjective: Ms. Benjamin is resting in bed. Her mood is somewhat better, although she is still anxious about going home, which will be afternoon. The patient's family wanted to switch over to a FlexPen for both long-term and short-term insulin treatment. A prescription was sent for the Humalog FlexPen 4 units 3 times daily with meals. No other issues. Objective: No fevers or chills. No significant myalgias, arthralgias. Some hesitancy about going h ome and some anxiety related to that. Physical Examination: Vital Signs: Blood pressure 111/55, pulse 84, respiratory rate 16, temperature 97.6, oxygen saturati on 99%. General: Ms. Benjamin is resting in bed. She is in no significant distress. HEENT: She appears normocephalic, atraumatic. Sclerae anicteric. Oropharynx pink and moist. Neck: Supple. Chest: Clear. Extremities: Show no significant edema or cyanosis. Laboratory Studies: White blood cell count 11 with neutrophils 83.6, hemoglobin 10.4, platelets elev ated to 1086. Sodium 133, potassium 4.0, chloride 101, carbon dioxide 28, BUN 20, creatinine 0.82, g lucose ranged from 98 to 278, calcium 8.6, magnesium 2.0. X-ray/imaging Studies: She did have a Doppler extremity study to rule out deep vein thrombosis, that study showed no deep vein thrombosis in the right lower extremity. A shoulder x-ray was done on 09/26/2023, the study showed a stable alignment of the known right surgi kael neck humeral fracture which again stable from 09/26/2023 and that was compared to 09/21/2023. Medications: Tylenol 500 mg every 6 hours as needed, Xanax 0.25 mg twice daily as needed, Eliquis 2. 5 mg twice daily, aspirin 81 mg daily, Lipitor 40 mg at bedtime, Dulcolax 10 mg suppository as needed for constipation, BuSpar 10 mg twice daily, Glucerna 237 mL twice daily, ferrous sulfate 325 mg nate y, Lasix 40 mg daily, gabapentin 300 mg daily, hydroxyurea 500 mg daily, Semglee insulin 24 units at bedtime and a Humalog insulin sliding scale, which she is actually receiving 4 units 3 times daily wi , Imdur 30 mg daily, Synthroid 0.075 mg daily, lidocaine patch apply topically daily as neede d, Imodium 2 mg every 4 hours as needed, milk of magnesia 30 mL every day as needed for constipation, melatonin 10 mg at bedtime, Lopressor 12.5 mg twice daily, metformin 250 mg at breakfast, Zofran 4 m g every 4 hours as needed, potassium chloride 10 mEq twice daily, Senokot-S 2 at bedtime as needed, U ltram 50 mg every 6 hours as needed, trazodone 50 mg at bedtime, and valsartan 160 mg twice daily. Progress Made With Physical, Occupational, And Speech Therapy: Today with physical therapy, she ambu lated 835 feet without an assistive device. She did have 5 to 6 incidental loss of balance and self recovery. She also used a quad cane and ambulated 350 feet and 550 feet with contact guard assistanc e. She ascended and descended 10 steps with bilateral handrails with contact guard assistance. She did [id number] transfers independently. [id number] transfers done independently. With occupati onal therapy, toileting supervision. She did have some pain in the right shoulder that improved to 0 /10 with repositioning. With speech, demonstrated recall of 2 sets of 3 pictures using association a fter 5 minutes without cues. Problem-solving skills were discussed and she did well. Reading compre hension demonstrated with 95% accuracy. Ms. Benjamin is making great progress with physical, occupational, and speech therapy and is close to genaro ng discharged home, which will be on evening. Assessment: Ms. Benjamin is an 88-year-old patient in the rehabilitation unit with CHF myopathy, from [facility] she is recovering excellently. She has multiple comorbidities which include hypothyroidism, dysl ipidemia, urinary tract infection, decreased mobility, decreased physical functioning, osteopenia, ma lnutrition, anemia. Plan: Continue with physical, occupational, and speech therapy, 3.5 hours, 5 of 7 days. She does ortiz ve the right arm in a sling, which is non-repairing and she is able to maintain that while she is mobilizing. She will be ready for discharge and will continue aggressive therapy. LB/MODL Voice ID: [id number] Report ID: [id number]
--- NOTE | 2023-10-02 13:14 | P.RH.PN ---
Estimated Length of Stay: 16 Expected Discharge Date: 10/05/23 Discharge Disposition Plan: Home Family Support: Yes Alf Goal: Mobility, Transfers, Self Care Vital Signs: Last Vital Signs Temp 97.4 F 10/02/23 08:00 Pulse 78 10/02/23 09:52 Resp 16 10/02/23 08:00 BP 135/68 10/02/23 09:52 Pulse Ox 100 10/02/23 08:00 Laboratory: Laboratory Last Values WBC 11.00 thou/uL (4.3-10.9) H 10/01/23 06:59 RBC 3.29 M/uL (3.86-4.86) L 10/01/23 06:59 Hgb 10.4 g/dL (12.0-15.0) L 10/01/23 06:59 Hct 30.4 % (36.0-45.0) L 10/01/23 06:59 MCV 92.4 fL (80-100) 10/01/23 06:59 MCH 31.7 pg (27.0-35.0) 10/01/23 06:59 MCHC 34.3 g/dL (32.0-36.0) 10/01/23 06:59 RDW 18.1 % (12.1-15.2) H 10/01/23 06:59 Plt Count 1086 thou/uL (152-406) H 10/01/23 06:59 MPV 8.2 fL (7.6-11.3) 10/01/23 06:59 Neutrophils % 83.6 % (41.7-73.7) H 10/01/23 06:59 Lymphocytes % 7.1 % (15.3-44.8) L 10/01/23 06:59 Monocytes % 5.6 % (3.3-12.3) 10/01/23 06:59 Eosinophils % 2.5 % (0-4.4) 10/01/23 06:59 Basophils % 1.2 % (0-1.3) 10/01/23 06:59 Absolute Neutrophils 9.2 K/uL (1.8-8.0) H 10/01/23 06:59 Segmented Neutrophils 78 % (40-80) 09/26/23 03:49 Band Neutrophils 9 % (0-1) H 09/26/23 03:49 Absolute Lymphocytes 0.8 K/uL (0.7-4.9) 10/01/23 06:59 Lymphocytes 6 % (15-42) L 09/26/23 03:49 Monocytes 3 % (0-10) 09/26/23 03:49 Absolute Monocytes 0.6 K/uL (0.1-1.3) 10/01/23 06:59 Eosinophils 3 % (0-3) 09/26/23 03:49 Absolute Eosinophils 0.3 K/uL (0-0.5) 10/01/23 06:59 Basophils 1 % (0-1) 09/26/23 03:49 Absolute Basophils 0.1 K/uL (0-0.5) 10/01/23 06:59 Hypersegmented Neuts Present 09/21/23 08:35 Platelet Estimate Adeq 09/26/23 03:49 Polychromasia Slight 09/26/23 03:49 Anisocytosis 1+ 09/26/23 03:49 Schistocytes 2+ 09/26/23 03:49 Morphology Comment Noted (NOT SEEN) 09/26/23 03:49 Sodium 133 mEq/L (136-145) L 10/01/23 06:59 Potassium 4.0 mEq/L (3.5-5.1) 10/01/23 06:59 Chloride 101 mEq/L (98-107) 10/01/23 06:59 Carbon Dioxide 28 mEq/L (21-32) 10/01/23 06:59 Anion Gap 8.0 mEq/L (5.0-15.0) 10/01/23 06:59 BUN 20 mg/dL (7-18) H 10/01/23 06:59 Creatinine 0.82 mg/dL (0.55-1.02) 10/01/23 06:59 Est GFR (CKD-EPI) 69 ml/min (=/>90) L 10/01/23 06:59 Glucose 110 mg/dL (74-106) H 10/01/23 06:59 POC Glucose 230 mg/dL (65-120) H 10/02/23 11:32 Lactic Acid 0.8 mmol/L (0.4-2.0) 09/22/23 05:20 Calcium 8.6 mg/dL (8.5-10.1) 10/01/23 06:59 Magnesium 2.0 mg/dL (1.6-2.4) 10/01/23 06:59 Lactate Dehydrogenase 385 U/L (84-246) H 09/21/23 15:03 Albumin 3.0 g/dL (3.4-5.0) L 09/26/23 08:01 Prealbumin 12.9 mg/dL (20-40) L 09/26/23 08:01 Procalcitonin 0.43 ng/mL (<0.050) H 09/22/23 05:20 Urine Color Yellow (Yellow) 09/20/23 21:53 Urine Clarity Extremely turbid (Clear) H 09/20/23 21:53 Urine pH 6.5 (5.0-7.0) 09/20/23 21:53 Ur Specific [place] > 1.030 (1.005-1.030) H 09/20/23 21:53 Glucose (UA)(Auto) 3+ (Negative) H 09/20/23 21:53 Urine Ketones 1+ (Negative) H 09/20/23 21:53 Urine Blood 3+ (Negative) H 09/20/23 21:53 Urine Nitrite Negative (Negative) 09/20/23 21:53 Urine Bilirubin Negative (Negative) 09/20/23 21:53 Urine Urobilinogen 1+ (Normal) H 09/20/23 21:53 Ur Leukocyte Esterase 500 Toney/uL (Negative) H 09/20/23 21:53 Urine RBC 21-50 /HPF (None Seen) H 09/20/23 21:53 Urine WBC 5-10 /HPF (<5) 09/20/23 21:53 Ur Squamous Epith Cells <5 /HPF (None Seen) 09/20/23 21:53 U Non-Squamous Epi Cells <5 /HPF (None Seen) 09/20/23 21:53 Amorphous Crystals Trace /HPF (None Seen) 09/20/23 21:53 Urine Bacteria 20-50 /HPF (<20) H 09/20/23 21:53 Urine Mucus Slight /HPF (None Seen) 09/20/23 21:53 Urine Yeast (Budding) Occasional /HPF (None Seen) H 09/20/23 21:53 Urine Culture Reflexed Not needed 09/20/23 21:53 Urine Total Protein 1+ (Negative) H 09/20/23 21:53 Weight: 124 lb Wound Present: No Closed Surgical Incision Present: No Negative Pressure Wound Therapy Present: No Physician Update: Labs reviewed and stable elevated platelets and low Hgb. Pain is covered with Tylenol and gabapentin. Anxiety is less. She made very good progress with all therapy.BIMS 15, SLUMS 22, more clear. Cane 500' to 750' supervison. Up and down 10 steps with supervision. She will go to SNF. Summary: Patient's care plan and fci goals have been reviewed and revised as necessary. Please see the Rehabilitation Signature page for all necessary signatures.
[2023-10-03 07:43] VITALS: TEMP 97
[2023-10-03 15:48] VITALS: BP 131/68
== END 2023-10-03 10:05 | DRG 92 ==
LOC: 5TH 09-20 17:00
PROVIDERS: ADMIT Psychiatry & Neurology Neurology with Special Qualifications in Child Neurology; ATTEND Psychiatry & Neurology Neurology with Special Qualifications in Child Neurology
DX: G72.89 Other specified myopathies (principal); I50.30 Unspecified diastolic (congestive) heart failure; N39.0 Urinary tract infection, site not specified; S42.211D Unspecified displaced fracture of surgical neck of right humerus, subsequent encounter for fracture with routine healing; I11.0 Hypertensive heart disease with heart failure; E11.9 Type 2 diabetes mellitus without complications; E03.9 Hypothyroidism, unspecified; K59.00 Constipation, unspecified; E78.5 Hyperlipidemia, unspecified; I25.10 Atherosclerotic heart disease of native coronary artery without angina pectoris; R53.81 Other malaise; M85.80 Other specified disorders of bone density and structure, unspecified site; G47.00 Insomnia, unspecified; D50.9 Iron deficiency anemia, unspecified; F41.9 Anxiety disorder, unspecified
CPT/HCPCS: 36415; 71045; 74018; 80048; 81001; 82040; 82947; 83605; 83615; 83735; 84134; 84145; 85025; 87040; 87077; 87086; 87088; 87186; 92523; 93971; 97110; 97112; 97116; 97129; 97163; 97165; 97530; 97535; 97542; J1815; J2001; J2543; J7030; J7050; Q0162